=== PATIENT | male | born 1940 | race Caucasian/White ===

== ENCOUNTER → 2017-01-27 | Day surgery (SDC) | payer MEDICARE, BC ==
[2017-01-25 10:02] VITALS: BMI 27.9
[~2017-01-27] MED LIST: LACTATED RINGERS 1,000 ML IV SCH; LIDOCAINE 1% 20 ML VIAL (10MG/ML) FOR IV START INTRADERMA PRN; LIDOCAINE 1% INJ 10MG/ML (20 ML MDV) ONE; PROPOFOL 10 MG/ML 20 ML VIAL IV ONE
[2017-01-27 22:12] VITALS: PULSE 60; RESP 16; TEMP 97
--- NOTE | 2017-01-27 23:14 | PCN ---
PROCEDURE NOTE REQUESTING PHYSICIAN: Dr. Kush Mi BRIEF HISTORY: The patient is a 77-year-old pleasant white male, scheduled for elective colonoscopy as part of evaluation of rectal bleeding for the last 6 months duration. He has atrial fibrillation on Coumadin. He has been on hold for 5 days. He is scheduled for a colonoscopy to evaluate further. The patient had prior colon resection several years ago. PROCEDURE PERFORMED: Colonoscopy. PREOPERATIVE DIAGNOSIS: Intermittent rectal bleeding of 6 months duration. IV sedation by anesthesia. PROCEDURE: After informed consent was obtained, the patient was brought into the endoscopy unit. IV sedation was administered by anesthesia under continuous monitoring. Initial digital rectal examination was normal. The Olympus CF 180 video colonoscope was inserted per rectum, gradually advanced to the cecum without any difficulty. Careful examination was performed as the scope was gradually being withdrawn. The ileocecal valve and appendiceal orifice were visualized and appeared normal. The prep was excellent. The mucous of the cecum, ascending colon, transverse colon, descending colon appeared normal. There was an anastomosis noted in the proximal rectum at 12 cm from the anal verge and the anastomosis had mild friability of the mucosa noted. The rectum appeared distended and along the dentate line two superficial ulcerations identified as well as small internal hemorrhoids but no active bleeding seen. The patient tolerated the procedure well. IMPRESSION: 1. Small internal hemorrhoids. 2. Two superficial ulcerations at the dentate line related to anal fissure, probably the source of bleeding. 3. No evidence of colorectal neoplasia. RECOMMENDATION: The findings of this examination were discussed with the patient as well as his family. He was advised to be on a high-fiber diet and fiber supplements on a regular basis and use of osmotic laxative as needed and avoid constipation. He was advised to resume Coumadin today. MMODL / IJN: [id number] /
--- NOTE | 2017-02-10 08:24 | CDI ---
Dr. Carlos Raman, In this encounter, indication for colonoscopy is rectal bleeding. In procedure note, impression stated as superficial ulcerations at the dentate line related to anal fissure probably the source of bleeding. Based on your clinical opinion please document the underlying cause of rectal bleeding. Sincerely, Marivel Garcia--retention manager Jodie Breaux MBA, TERRI, [facility] [employer], [facility] [phone] [facility]
== END | disposition home or self-care (01) ==
LOC: ORWHC2ENDO 09:46
PROVIDERS: ATTEND Internal Medicine Gastroenterology
DX: K62.5 Hemorrhage of anus and rectum (principal); K60.2 Anal fissure, unspecified; K64.8 Other hemorrhoids; I48.91 Unspecified atrial fibrillation; Z79.01 Long term (current) use of anticoagulants; Z98.0 Intestinal bypass and anastomosis status; Z90.49 Acquired absence of other specified parts of digestive tract; Z86.718 Personal history of other venous thrombosis and embolism; Z95.0 Presence of cardiac pacemaker
CPT/HCPCS: 45378; J2001; J2704

== ENCOUNTER → 2019-02-28 | Outpatient (CLI) | payer MEDICARE, BC ==
[2019-02-28 16:15] LABS: HGB 15.5 gm/dL (13.0-17.5); MCH 31.9 pg (25.0-35.0); MCV 96.7 fL (80.0-100.0); Mean Platelet Volume 8.1; Platelet Count 216 k/uL (150-450); RBC 4.86 m/uL (4.30-5.90); WBC 7.3 k/uL (3.8-10.6)
== END | disposition home or self-care (01) ==
LOC: LABWHC1 15:40
PROVIDERS: ATTEND Otolaryngology
DX: Z01.812 Encounter for preprocedural laboratory examination (principal)
CPT/HCPCS: 36415; 85027

== ENCOUNTER 2019-03-11 08:07 | Day surgery (SDC) | payer MEDICARE, BC ==
[2019-03-07 11:24] VITALS: BMI 26.5
--- NOTE | 2019-03-11 00:56 | HP ---
HISTORY AND PHYSICAL CHIEF COMPLAINT: Carcinoma of the mouth. HISTORY OF PRESENT ILLNESS: This patient is a pleasant 79-year-old male who was recently seen in my office on referral by Dr. Mi. The patient had previously had an abscess on the posterior aspect of his neck, which was drained by Dr. Mi and he was placed on an oral antibiotic. This area apparently had gotten better. However, the patient was concerned about a lesion on the left corner of his mouth which has been there for quite some time that is same for at least several months to as long as a year. He states that it occasionally bleeds, but it is not painful. At the time the patient was seen in my office, clinical examination revealed the patient had an approximately 5-7 mm raised macular papular lesion, which was ulcerated in the middle and had the appearance of a basal cell carcinoma. It is located on the left lower lip near the corner of the mouth or left commissure. I have advised the patient not to continue to try and shave close to this area because he may be irritating it. It was also recommended this area to be excised completely because of a possible carcinoma. PAST MEDICAL HISTORY: Past medical history reveals patient has: ALLERGIES: TO SULFA AND TO CERTAIN SEAFOOD AND IODINE. PREVIOUS SURGERIES: Include colectomy x2, appendectomy, insertion of a pacemaker, kidney surgery, and hemorrhoid surgery. CURRENT MEDICATIONS: Include warfarin, and Keflex. REVIEW OF SYSTEMS: Reveals that the cardiovascular system is positive for ASHD and cardiac arrhythmia. The remainder of the review of systems is essentially unremarkable. PHYSICAL EXAMINATION: This patient is a pleasant 79-year-old male who is alert, cooperative and well-oriented to time and place. HEENT examination patient is normocephalic. Tympanic membranes are normal middle ear spaces are free of any fluid or infection. Pupils are equal, round, and reactive to light and accommodation. Extraocular movements within normal limits. Intranasal examination reveals moderate to severe septal deviation with compensatory hypertrophy of the inferior turbinates and a moderate amount of mucus on the mucous membranes and draining down the posterior pharynx. Examination of oropharynx is unremarkable. Attention to the patient's lower lip reveals that the patient has an approximately a 5-7 mm lesion located in the left corner of the mouth near the left commissure. No other suspicious lesions are noted. Cranial nerves 2-12. The remainder of the head and neck exam is essentially within normal limits. Chest/cardiovascular: Both lung sánchez are clear to percussion and auscultation. Patient is in regular sinus rhythm. S1, S2 are present without evidence of murmurs S3s or S4. Abdomen is no evidence no evidence of any masses, megaly, or tenderness. ABDOMEN: Soft. Skin is unremarkable. Musculoskeletal/neurological is unremarkable. Rectal exam initially present. The rectal exam is deferred at this time because the patient is on a regular basis at his family physician's office. The remainder of physical exam is essentially unremarkable. IMPRESSION: Carcinoma left corner of the mouth. PLAN: The patient is scheduled to undergo excision of a carcinoma of the left corner of the mouth under general anesthesia. Attention RNs in the pre-surgical area. If the OR, I have ordered for this patient to receive 2 g of Ancef, IV to be given once an intravenous line has been established. If the pharmacy department sends a different pre-surgical prophylactic antibiotics to the pre-surgical area for this patient, that order should be cancelled and the medication should be returned to the pharmacy department. Please make sure that the patient's account is credited appropriately. I have also ordered for this patient to receive 1000 mg of Ofirmev IV to be given once an intravenous line has been established. Finally, I have also requested that the patient be fitted with Venodyne compression stockings. I have discussed the risks, benefits and alternative therapies for the above-mentioned procedure and for both sedation/analgesia as well as necessary blood product administration, if indicated, as they pertain to this patient. The patient has indicated his or her understanding and acceptance of the risks and procedures discussed. MMODL / IJN: [id number] /
[~2019-03-11 08:07] MED LIST changes: +DEXAMETHASONE SOD PHOSPHATE 10 MG/ML 1 ML VIAL IV ONE; +HYDROmorphone 0.5 MG/0.5 ML SYRINGE IVP PRN; -LIDOCAINE 1% INJ 10MG/ML (20 ML MDV) ONE; +ONDANSETRON 4 MG/2 ML VIAL IVP ONE; -PROPOFOL 10 MG/ML 20 ML VIAL IV ONE; +Pre Op ABX Message 1 EACH MISC MISCELLANE ONE
[2019-03-11] MEDS ORDERED: LACTATED RINGERS 1,000 ML IV ONE (09:14)
[2019-03-11] MEDS ORDERED: ONDANSETRON 4 MG/2 ML VIAL IVP ONE (09:24)
[2019-03-11 09:30] LABS: INR 1.4 (<1.2); Prothrombin Time 14.2 sec (9.0-12.0)
[2019-03-11] MEDS ORDERED: ACETAMINOPHEN IV (For NPO) 1,000 MG in EMPTY BAG 1 BAG IVPB ONE (09:45)
[2019-03-11] MEDS ORDERED: NEOSTIGMINE 1 MG/ML 10 ML VIAL ONE (10:40)
[2019-03-11] MEDS ORDERED: PROPOFOL 10 MG/ML 20 ML VIAL IV ONE (10:40)
[2019-03-11] MEDS ORDERED: SUCCINYLCHOLINE CHLORIDE 100 MG/5 ML SYR IV ONE (10:40)
[2019-03-11] MEDS ORDERED: GLYCOPYRROLATE 0.2 MG/ML 2 ML VIAL ONE (10:40)
[2019-03-11] MEDS ORDERED: MIDAZOLAM 2 MG/2 ML VIAL ONE (10:40)
[2019-03-11] MEDS ORDERED: fentaNYL (PF) 50 MCG/ML 2 ML AMP ONE (10:40)
[2019-03-11] MEDS ORDERED: LIDOCAINE 1% INJ 10MG/ML (20 ML MDV) ONE (10:40)
[2019-03-11] MEDS ORDERED: ROCURONIUM BROMIDE 10 MG/ML 10 ML VIAL IV ONE (10:40)
[2019-03-11] MEDS ORDERED: BACITRACIN 500 UNIT/GM OINT 28.4 GM TUBE TOPICAL ONE (11:27)
[2019-03-11 12:21] VITALS: TEMP 98
[2019-03-11 13:12] VITALS: PULSE 51
[2019-03-11 13:25] VITALS: BP 142/81; RESP 16
--- NOTE | 2019-03-11 17:47 | OP ---
OPERATIVE REPORT DATE OF SURGERY: 03/11/2019 PREOPERATIVE DIAGNOSIS: Lesion (suspect carcinoma) 5-7 mm of the left lower lip/commissure. POSTOPERATIVE DIAGNOSIS: Lesion (suspect carcinoma) 5-7 mm of the left lower lip/commissure. Final pathology is pending. ANESTHESIA: General anesthesia. OPERATIVE PROCEDURE: Complete excision of 5-7 mm lesion of the left lower lip/commissure with reconstruction via a small advancement flap. SURGEON: Dr. Aguila. COMPLICATIONS: None. ESTIMATED BLOOD LOSS: Less than 30 mL. OPERATIVE PROCEDURE: The patient is placed on operating table in supine position. After uneventful induction and endotracheal intubation, satisfactory general anesthesia was obtained. Next the patient's left mehrdad face was prepped and draped in the usual and customary fashion. Following this, the lesion in question was inspected. It was found that the lesion was extremely close to the left commissure of the mouth. The lesion measured approximately 0.5-0.7 mm. It was elected to excise the lesion in an elliptical fashion and to reconstruct it with a small advancement flap. The proposed incision line was outlined with a Codman marker. Next using a #15 scalpel blade, the lesion was excised completely in the usual fashion. The lesion was then marked using various colored sutures to tack the medial portion of the specimen with a green suture. The lateral portion of the specimen with a white suture, the superior portion of the suture was tagged with a black suture and the inferior portion of the suture was was tagged with a blue suture. The specimen was sent to pathology and permanent sectioning. It should be noted that the incision was carried down to the level of the orbicularis piotr muscle. Excision of the lesion left a large defect. Hemostasis was obtained using low wattage electrocautery. Next, a small advancement flap was created in the usual fashion so as to make closure of this defect easier and also in an effort to lessen any distortion of the commissure/corner of the mouth. The closure was started with deep sutures using 4-0 Vicryl in an interrupted fashion. Next, the subcutaneous fatty tissues were reapproximated using 4-0 chromic in an interrupted buried fashion. Next, the subcu subcutaneous tissues were approximated using 4-0 rapid absorbing Vicryl in interrupted fashion. A second subcutaneous layer was used to further approximate the skin edges using full rapid absorbing Vicryl in an interrupted fashion. To further bolster the strength of the closure, which was located near the left corner of the mouth, surgical idris were used in the skin. At this point, the procedure was terminated. No dressing was applied. The area was coated with bacitracin ointment. The patient tolerated the procedure well and was returned to the recovery room in satisfactory condition. Approximate operating time was 2 hours and 5 minutes. Final pathology is pending. MMBHARATH / IJN: [id number] / MTDD
== END 2019-03-11 14:09 | disposition home or self-care (01) ==
LOC: OR 08:07
PROVIDERS: ATTEND Otolaryngology
DX: C44.01 Basal cell carcinoma of skin of lip (principal); Z90.49 Acquired absence of other specified parts of digestive tract; Z95.0 Presence of cardiac pacemaker; I25.10 Atherosclerotic heart disease of native coronary artery without angina pectoris; I49.9 Cardiac arrhythmia, unspecified; Z87.891 Personal history of nicotine dependence; Z86.718 Personal history of other venous thrombosis and embolism; Z79.01 Long term (current) use of anticoagulants; Z91.013 Allergy to seafood; Z91.010 Allergy to peanuts; Z88.2 Allergy status to sulfonamides; Z91.048 Other nonmedicinal substance allergy status
CPT/HCPCS: 14060; 88305; 85610; J2250; J2710; J0690; J2405; J2001; J3010; J0131; J0330; J2704

== ENCOUNTER 2021-05-27 09:46 | Day surgery (SDC) | payer MEDICARE, BC ==
[~2021-05-27 09:46] MED LIST changes: -DEXAMETHASONE SOD PHOSPHATE 10 MG/ML 1 ML VIAL IV ONE; -HYDROmorphone 0.5 MG/0.5 ML SYRINGE IVP PRN; -LACTATED RINGERS 1,000 ML IV SCH; -LIDOCAINE 1% 20 ML VIAL (10MG/ML) FOR IV START INTRADERMA PRN; -ONDANSETRON 4 MG/2 ML VIAL IVP ONE; -Pre Op ABX Message 1 EACH MISC MISCELLANE ONE; +ceFAZolin 1 GM in SODIUM CHLORIDE 0.9% IRRIG BTL 250 ML IRRIGATION PRN
[2021-05-27 10:25] LABS: Basophils # (A) 0.1 k/uL (0-0.2); Basophils % (A) 1 %; Eosinophils # (A) 0.1 k/uL (0-0.7); Eosinophils % (A) 2 %; HGB 16.3 gm/dL (13.0-17.5); Lymphocytes # (A) 1.6 k/uL (1.0-4.8); Lymphocytes % (A) 24 %; MCH 32.5 pg (25.0-35.0); MCHC 33.3 g/dL (31.0-37.0); MCV 97.8 fL (80.0-100.0); Mean Platelet Volume 8.1; Monocytes # (A) 0.6 k/uL (0-1.0); Monocytes % (A) 9 %; Neutrophils # (A) 4.3 k/uL (1.3-7.7); Neutrophils % (A) 64 %; Platelet Count 199 k/uL (150-450); RBC 5.01 m/uL (4.30-5.90); RDW 13.2 % (11.5-15.5); WBC 6.7 k/uL (3.8-10.6)
[2021-05-27 10:34] LABS: Calcium 9.2 mg/dL (8.4-10.2); INR 1.6 (<1.2); Potassium 4.1 mmol/L (3.5-5.1); Prothrombin Time 16.3 sec (9.0-12.0)
[2021-05-27] MEDS: SODIUM CHLORIDE 0.9% 1,000 ML IV SCH ×2 (10:36→23:45)
[2021-05-27] MEDS ORDERED: fentaNYL (PF) 50 MCG/ML 2 ML AMP ONE (10:40)
[2021-05-27] MEDS ORDERED: HYDROmorphone (PF) 1 MG/ML ONE (10:40)
[2021-05-27] MEDS ORDERED: PROPOFOL 10 MG/ML 20 ML VIAL IV ONE (10:40)
[2021-05-27] MEDS ORDERED: MIDAZOLAM 2 MG/2 ML VIAL ONE (10:40)
[2021-05-27] MEDS ORDERED: IOPAMIDOL-370 50ML BTL INJ ONE (11:09)
[2021-05-27] MEDS ORDERED: LIDOCAINE 1% INJ 10MG/ML (20 ML MDV) SQ ONE (11:30)
[2021-05-27] MEDS ORDERED: ACETAMINOPHEN TAB 325 MG TAB PO PRN (14:52)
--- NOTE | 2021-05-27 15:06 | P.EPPROC ---
- EP Procedure Note Electrophysiology Procedure Note: Diagnosis Bradycardia, greater than 90% RV pacing Permanent atrial fibrillation Device at CY Procedure Implantation of an LV lead Implantation of a His bundle/left bundle lead Chronic RV pacing lead cut and capped Chronic single chamber generator removed New biventricular pacemaker generator implanted with Pouch Details Patient was brought to the EP lab in a fasting state. Left upper extremity venogram performed. Mild stenosis in the axillary subcu injunction 10 mL every dye injected Written informed consent was obtained prior to the procedure. Conscious sedation provided by anesthesia team IV antibiotics administered. Local anesthesia administered. A 4 cm incision made in the pectoral area. Subfascial pocket made. Venous access obtained Venodilation of the subclavian axillary junction and the innominate vein performed with serial dilators Venous sheaths placed. Leads placed in the right heart His bundle sheath and a [employer]tronic model #3830-lead was addition the His bundle area Nonselective His bundle pacing obtained with loss of capture 2 V at 1 ms This lead was then removed and advanced to the left bundle area The lead was screwed in deep into the septum in this area. Serial EKG changes in the QRS noted until right bundle branch block morphology QRS was noted However in the sheath was removed, this lead was dislodged. The subclavian/pectoral area was very tight This sheath was then upgraded to a larger size sheath A new His bundle sheath was placed His bundle pacing was successfully performed once again. Nonselective capture was lost at around 2-2.[address] [facility] LV lead positioned in the LV vein. Anterior lateral vein targeted. Diminutive veins noted Anterolateral vein targeted. Initially excellent thresholds obtained along the LV lead after removal of the sheath the LV thresholds were higher Best capture threshold noted at LV 2-Can Old RV lead was cut And secured the pectoralis muscle Old generator was explanted New generator implanted, [employer] biventricular pacemaker lead [employer] Biventricular pacemaker device connected to the leads and placed in the subfascial pocket LV first pacing performed with His bundle pacing 80 ms thereafter Antibiotic envelope used Patient tolerance the procedure well without acute complications Extended procedure on account of His bundle mapping and left bundle mapping Venoplasty of the subclavian/axillary vein junction as well as rhinoplasty of the distal innominate vein
[2021-05-27] MEDS ORDERED: ACETAMINOPHEN IV (For NPO) 1,000 MG in EMPTY BAG 1 BAG IVPB ONE (15:15)
[2021-05-27] MEDS ORDERED: WARFARIN 5 MG TAB PO SCH (18:00)
--- NOTE | 2021-05-27 18:29 | XR ---
EXAMINATION: XR chest 1V portable DATE AND TIME: 05/27/2021 6:06 PM CLINICAL INDICATION: Lead placement check TECHNIQUE: AP upright portable COMPARISON: Chest radiograph 09/07/2014 FINDINGS: Cardiac pacemaker noted with leads well-visualized. The lungs are clear. The pleural spaces are negative. The cardiac silhouette is not enlarged. The remainder of the mediastinal silhouette is unremarkable. The skeletal structures and soft tissues are negative for acute findings. IMPRESSION: No acute pulmonary pleural process.
[2021-05-28 07:33] VITALS: BP 148/76; PULSE 48; RESP 17; TEMP 98
[2021-05-28 07:33] LABS: INR 1.4 (<1.2); Prothrombin Time 14.5 sec (9.0-12.0)
--- NOTE | 2021-05-29 15:13 | P.DS ---
Providers Attending physician: Samir Rodriguez Primary care physician: [facility] Course: Patient is doing well post upgrade to a biventricular device, pacemaker, [employer] Minimal soakage no hematoma No chest discomfort no dizziness lightheadedness On examination vitals are stable blood pressure is normal Heart sounds S1 and S2 are normal Lungs clear equal air entry bilaterally Abdomen soft Impression Permanent atrial fibrillation with bradycardia Pacemaker at CY Old RV lead is a split pacemaker lead This is start His bundle lead was implanted LV lead was implanted His bundle pacing incorporated LV pacing performed Plan Discharge home today Pacemaker is functioning normally Chest x-ray is within normal limits Antibiotics complete Plan - Discharge Summary Discharge Rx Participant: No New Discharge Prescriptions: No Action Warfarin [Coumadin] 5 mg PO MOWEFR Warfarin [Coumadin] 2.5 mg PO SUTUTHSA Acetaminophen with Codeine [Tylenol w/codeine #3] 1 tab PO Q4H PRN 3 Days #18 tab PRN Reason: Pain Discharge Medication List Warfarin [Coumadin] 5 mg PO MOWEFR 09/07/14 [History] Warfarin [Coumadin] 2.5 mg PO SUTUTHSA 01/25/17 [History] Acetaminophen with Codeine [Tylenol w/codeine #3] 1 tab PO Q4H PRN 3 Days #18 tab 03/10/19 [Rx] Follow up Appointment(s)/Referral(s): Samir Rodriguez MD [STAFF PHYSICIAN] - 06/03/21 1:30 pm (Appointment is at [facility] ) Patient Instructions/Handouts: Pacemaker (DC) Activity/Diet/Wound Care/Special Instructions: PATIENT EDUCATION MATERIAL Instructions following a heart rhythm device implant. 1. Keep dressing DRY for 5 DAYS. You may cover the area with Saran or Cling Wrap, prior to a shower. 2. The dressing will be removed in the [facility]. Absorbable sutures were used to close the wound. 3. Avoid raising the left arm above the shoulder level. 4 week restriction 4. Avoid arm movements, like backscratching, rubbing the head, or pulling on a cord. 4 weeks restriction 5. Gentle range of motion movements of the shoulder, closest to the incision should be performed to avoid a frozen shoulder. (Pendulum exercises of the shoulder) 6. The opposite arm may be used freely. 7. Avoid driving for 7 days. 8. Avoid activities such as golfing, swimming, weed whacking, lifting more than 10 pounds weight, bowling, gymnastics and weight training/lifting. (6 weeks restriction) 9. Activities such as wood chopping with an axe, pull-ups in the gymnasium, power lifting, arc-welding, being close to home induction cooktops will always be a problem. 10. Arm sling is only a reminder not to raise the arm above the head. You do not need to keep the arm completely immobilized. Your free to move the arm and use it and for normal activities. In case of any problems, please call [facility], [place], @ [phone], Attention: Device Clinic Device clinic follow-up in 5 days Follow-up with primary lead atg developer in 2-3 months Discharge Disposition: HOME SELF-CARE
[2021-05-29] MEDS ORDERED: WARFARIN 2.5 MG TAB PO SCH (18:00)
== END 2021-05-28 13:42 | disposition home or self-care (01) ==
LOC: CATHEP 09:46 → 6NMEDSUR 14:45 → CATHEP 05-28 13:42
PROVIDERS: ATTEND Internal Medicine Clinical Cardiac Electrophysiology
DX: I48.21 Permanent atrial fibrillation (principal); Z79.01 Long term (current) use of anticoagulants; Z20.822 Contact with and (suspected) exposure to COVID-19
CPT/HCPCS: 33225; 33229; 80048; 85025; 85610 ×2; 87635; 71045; C1769 ×6; C1892 ×2; C1730; C1887; C1898; C1900; C2621; J2250; J0690 ×2; J2001; J3010; J1170; J0131; J2704; Q9967

== ENCOUNTER 2021-05-31 15:20 | Observation (INO) | payer MEDICARE, BC ==
[2021-05-31] MEDS ORDERED: DIPH,PERTUS(ACELL)TETVAC-LF 0.5 ML VIAL IM ONE (17:06)
--- NOTE | 2021-05-31 17:13 | ED ---
General Adult HPI - General Chief complaint: Dizziness Stated complaint: syncope Time Seen by Provider: 05/31/21 16:12 Source: patient, EMS Mode of arrival: EMS Limitations: no limitations - History of Present Illness Initial comments: Dictation was produced using [employer] dictation software. please excuse any grammatical, word or spelling errors. Chief Complaint: 81-year-old male presents to the emergency department after syncopal episode and vertigo History of Present Illness: 81-year-old male he states that he was walking trying and some exercise. States during his walk he started to feel vertiginous. He states that he fell to the ground. Next he notices he is waking up on the floor. Patient states he did strike his chin on something hard. Patient recently had a pacemaker placed. States it is not AICD. He doesn't have any pain complaints. The bedside currently he feels a symptomatic. He feels significant vertigo however when he moves his head, especially when he was from sitting to standing. The ROS documented in this emergency department record has been reviewed and confirmed by me. Those systems with pertinent positive or negative responses have been documented in the HPI. All other systems are other negative and/or noncontributory. PHYSICAL EXAM: General Impression: Alert and oriented x3, not in acute distress HEENT: Superficial abrasion to the chin, extra-ocular movements intact, pupils equal and reactive to light bilaterally, mucous membranes moist. Cardiovascular: Heart regular rate and rhythm Chest: Able to complete full sentences, no retractions, no tachypnea Abdomen: abdomen soft, non-tender, non-distended, no organomegaly Musculoskeletal: Pulses present and equal in all extremities, no peripheral edema Motor: no focal deficits noted Neurological: CN II-XII grossly intact, no focal motor or sensory deficits noted Skin: Intact with no visualized rashes Psych: Normal affect and mood ED course: 81-year-old male presents emergency department for positional vertigo and syncopal episode. Vital signs upon arrival shows heart rate of 50, rest of vital signs within acceptable limits. EKG shows strange pacer spikes sometimes before the QRS complex and sometimes he for the initiation of the T wave. Unclear if this is normal. Patient was having features of benign positional v ertigo. At rest he is asymptomatic I wrote the second he moves his head he starts to feel vertiginous symptoms. Laboratory evaluation obtained per it CBC unremarkable. Coag panel is negative. Troponin is 0.167. No old troponins for comparison. Troponin elevation is likely secondary to recent pacemaker placement. Pacemaker was placed 4 days ago. Patient at the bedside reevaluated at 6:30 PM denying any significant symptoms at the moment. Given patient's recent pacemaker placement, age and comorbidities will have patient admitted. Pending pacemaker interrogation. Will be admitted to [facility] with consultation to cardiology. EKG interpretation: Ventricular rate paced rhythm, A. fib, QRS 89, QTc 460. No SC prolongation, no QTC prolongation, no ST or T-wave changes noted. - Related Data Home Medications Medication Instructions Recorded Confirmed Warfarin [Coumadin] 5 mg PO MOWEFR@209909/07/14 05/31/21 Warfarin [Coumadin] 2.5 mg PO SUTUTHSA@209901/25/17 05/31/21 Allergies Allergy/AdvReac Type Severity Reaction Status Date / Time Fish Containing Products Allergy Rash/Hives, Verified 05/31/21 18:27 [Fish] swelling, "asthma attack" peanut Allergy Unknown Verified 05/31/21 18:27 shellfish derived Allergy Rash/Hives, Verified 05/31/21 18:27 swelling,"asthma attack" Sulfa (Sulfonamide Allergy Unknown Verified 05/31/21 18:27 Antibiotics) Review of Systems ROS Statement: Those systems with pertinent positive or pertinent negative responses have been documented in the HPI. ROS Other: All systems not noted in ROS Statement are negative. Past Medical History Past Medical History: Asthma, Cancer, Deep Vein Thrombosis (DVT), Prostate Disorder, Pulmonary Embolus (PE) Additional Past Medical History / Comment(s): hx diverticulitis, bradycardia, SOB on excertion, gout, hx kidney stones, hx prostate cancer- tx with radioactive implants, skin cancer left corner of mouth. on rx for abcess cyst on back of neck History of Any Multi-Drug Resistant Organisms: None Reported Past Surgical History: Appendectomy, Bowel Resection, Heart Catheterization, Pacemaker Additional Past Surgical History / Comment(s): yady filter, colostomy/later reversal, surgery for kidney stones, Past Anesthesia/Blood Transfusion Reactions: No Reported Reaction Type of Cardiac Device: Permanent Pacemaker Device Placement Date:: 2011 Past Psychological History: No Psychological Hx Reported Smoking Status: Former smoker Past Alcohol Use History: Occasional Past Drug Use History: None Reported - Past Family History Mother Family Medical History: No Reported History General Exam Limitations: no limitations Course Vital Signs 05/31/21 15:58 Temperature 97.8 F Pulse Rate 50 L Respiratory 16 Rate Blood Pressure 150/75 O2 Sat by Pulse 97 Oximetry Medical Decision Making - Lab Data Result diagrams: 05/31/21 17:07 05/31/21 17:07 Lab Results 05/31/21 05/31/21 05/31/21 Range/Units 17:07 17:07 17:07 WBC 6.6 (3.8-10.6) k/uL RBC 4.22 L (4.30-5.90) m/uL Hgb 13.4 (13.0-17.5) gm/dL Hct 41.4 (39.0-53.0) % MCV 98.1 (80.0-100.0) fL MCH 31.8 (25.0-35.0) pg MCHC 32.4 (31.0-37.0) g/dL RDW 13.3 (11.5-15.5) % Plt Count 155 (150-450) k/uL MPV 8.4 Neutrophils % 77 % Lymphocytes % 12 % Monocytes % 8 % Eosinophils % 1 % Basophils % 0 % Neutrophils # 5.1 (1.3-7.7) k/uL Lymphocytes # 0.8 L (1.0-4.8) k/uL Monocytes # 0.5 (0-1.0) k/uL Eosinophils # 0.1 (0-0.7) k/uL Basophils # 0.0 (0-0.2) k/uL PT 14.3 H (9.0-12.0) sec INR 1.4 H (<1.2) APTT 24.1 (22.0-30.0) sec Sodium 136 L (137-145) mmol/L Potassium 4.1 (3.5-5.1) mmol/L Chloride 106 (98-107) mmol/L Carbon Dioxide 22 (22-30) mmol/L Anion Gap 8 mmol/L BUN 17 (9-20) mg/dL Creatinine 0.82 (0.66-1.25) mg/dL Est GFR (CKD-EPI)AfAm >90 (>60 ml/min/1.73 sqM) Est GFR (CKD-EPI)NonAf 84 (>60 ml/min/1.73 sqM) Glucose 87 (74-99) mg/dL Calcium 8.2 L (8.4-10.2) mg/dL Troponin I (0.000-0.034) ng/mL 05/31/21 Range/Units 17:07 WBC (3.8-10.6) k/uL RBC (4.30-5.90) m/uL Hgb (13.0-17.5) gm/dL Hct (39.0-53.0) % MCV (80.0-100.0) fL MCH (25.0-35.0) pg MCHC (31.0-37.0) g/dL RDW (11.5-15.5) % Plt Count (150-450) k/uL MPV Neutrophils % % Lymphocytes % % Monocytes % % Eosinophils % % Basophils % % Neutrophils # (1.3-7.7) k/uL Lymphocytes # (1.0-4.8) k/uL Monocytes # (0-1.0) k/uL Eosinophils # (0-0.7) k/uL Basophils # (0-0.2) k/uL PT (9.0-12.0) sec INR (<1.2) APTT (22.0-30.0) sec Sodium (137-145) mmol/L Potassium (3.5-5.1) mmol/L Chloride (98-107) mmol/L Carbon Dioxide (22-30) mmol/L Anion Gap mmol/L BUN (9-20) mg/dL Creatinine (0.66-1.25) mg/dL Est GFR (CKD-EPI)AfAm (>60 ml/min/1.73 sqM) Est GFR (CKD-EPI)NonAf (>60 ml/min/1.73 sqM) Glucose (74-99) mg/dL Calcium (8.4-10.2) mg/dL Troponin I 0.167 H* (0.000-0.034) ng/mL Disposition Clinical Impression: Syncope, BPPV (benign paroxysmal positional vertigo) Disposition: ADMITTED IP TO THIS [facility] Condition: Fair Referrals: Phoenix Mi MD [Primary Care Provider] - 1-2 days
--- NOTE | 2021-05-31 17:44 | CT ---
EXAMINATION TYPE: CT brain nunu wo con DATE OF EXAM: 05/31/2021 COMPARISON: 09/07/2014 HISTORY: Fall. Syncope CT DLP: mGycm Automated exposure control for dose reduction was used. Images of the brain and cervical spine obtained without contrast. There is cerebral cortical atrophy. There is no mass effect or midline shift. There is no sign of int racranial hemorrhage. Calvarium is intact. There is normal aeration of the mastoid sinuses. Skull bas e is intact. There is mild cervical kyphotic curvature. There is degenerative disc space narrowing at C4-5 with sp urring. No compression fracture. Facet joints are intact. Prevertebral soft tissues are intact. IMPRESSION: Cerebral atrophy. No acute intracranial abnormality. No acute bony abnormality of the cervical spine. Minor degenerative changes. Mild straightening of th e spine could relate to some spasm. Brain appears unchanged. Cervical spine straightening is a change compared to old exam.
[2021-05-31 17:50] LABS: Basophils % (A) 0 %; Eosinophils # (A) 0.1 k/uL (0-0.7); Eosinophils % (A) 1 %; HCT 41.4 % (39.0-53.0); HGB 13.4 gm/dL (13.0-17.5); Lymphocytes # (A) 0.8 k/uL (1.0-4.8); Lymphocytes % (A) 12 %; MCH 31.8 pg (25.0-35.0); MCHC 32.4 g/dL (31.0-37.0); MCV 98.1 fL (80.0-100.0); Mean Platelet Volume 8.4; Monocytes # (A) 0.5 k/uL (0-1.0); Monocytes % (A) 8 %; Neutrophils # (A) 5.1 k/uL (1.3-7.7); Neutrophils % (A) 77 %; Platelet Count 155 k/uL (150-450); RBC 4.22 m/uL (4.30-5.90); RDW 13.3 % (11.5-15.5); WBC 6.6 k/uL (3.8-10.6)
--- NOTE | 2021-05-31 17:58 | XR ---
EXAMINATION TYPE: XR chest 1V portable DATE OF EXAM: 05/31/2021 COMPARISON: 05/27/2021 HISTORY: Fall. Chest pain TECHNIQUE: FINDINGS: Heart is enlarged. No heart failure. There is left axillary pacemaker. There is no pleural effusion or pneumothorax. IMPRESSION: Cardiomegaly. No active cardiopulmonary disease. No change.
--- NOTE | 2021-05-31 17:59 | XR ---
EXAMINATION TYPE: XR pelvis AP view DATE OF EXAM: 05/31/2021 COMPARISON: NONE HISTORY: Fall. Pain TECHNIQUE: 2 views FINDINGS: Pelvic ring is intact. Proximal femurs and hip joints are intact. Sacroiliac joints are int act. There are implants in the prostate. IMPRESSION: No acute abnormality of the pelvis. No fracture.
[2021-05-31 18:04] LABS: African American GFR (CKD) >90 (>60 ml/min/1.73 sqM); Anion Gap 8 mmol/L; Blood Urea Nitrogen 17 mg/dL (9-20); Calcium 8.2 mg/dL (8.4-10.2); Carbon Dioxide 22 mmol/L (22-30); Chloride 106 mmol/L (98-107); Glucose 87 mg/dL (74-99); Non-African American GFR(CKD) 84 (>60 ml/min/1.73 sqM); Potassium 4.1 mmol/L (3.5-5.1); Sodium 136 mmol/L (137-145)
[2021-05-31 18:16] LABS: INR 1.4 (<1.2); Partial Thromboplastin Time 24.1 sec (22.0-30.0); Prothrombin Time 14.3 sec (9.0-12.0)
[2021-05-31] MEDS ORDERED: NALOXONE 0.4 MG/ML 1 ML VIAL IV PRN (18:32)
[2021-05-31] MEDS ORDERED: SODIUM CHLORIDE 0.9% 1,000 ML IV SCH (18:45)
--- NOTE | 2021-05-31 23:29 | P.HPIM ---
History of Present Illness H&P Date: 05/31/21 The patient is an 81-year-old male with a PMH of permanent A. fib with bradycardia on Coumadin, status post pacemaker placement who presents to the emergency room for syncope and fall. The patient [place] walk around to get some exercise when he suddenly developed severe lightheadedness, and then lost consciousness. He woke up after an unknown amount of time on the ground, realizing that he had hit chin and nose on the ground, hitting the gravel dirt road. Of note, the patient recently underwent the placement of a new biventricular pacemaker ([employer]) placement by Dr. Rodriguez on 05/27/21. The patient does report that ever since the placement of this new pacemaker, that he has felt lightheaded, especially when standing up quickly or bending down. He denied symptoms of vertigo, and denied any symptoms with turning his head while laying in bed. He further denied chest discomfort, shortness of breath, nausea, vomiting, diaphoresis, abdominal pain. Denied fever, chills, cough. Does not recall experiencing palpitations, chest discomfort, or shortness of breath prior to losing consciousness. He underwent an extensive evaluation in the emergency room with a CT brain and cervical spine without contrast showing mild straightening of the spine, possible spasm with no acute abnormalities. An EKG revealed A. fib at 62 bpm with poor R-wave progression, and T-wave inversion in leads 2, 3, aVF. Chest x-ray revealed cardiomegaly but otherwise unremarkable. Pelvis x-ray was also unremarkable. Laboratory evaluation revealed a troponin of 0.167. Review of systems: Pertinent positives and negatives as discussed in HPI, a complete review of systems was performed and all other systems are negative. Physical examination: General: non toxic, no distress, appears at stated age, normal weight Derm: Chin abrasion superficial, nasal tip and bridge mild ecchymosis, warm, dry Head: atraumatic, normocephalic, symmetric Eyes: EOMI, no lid lag, anicteric sclera, pupils equal round reactive to light ENT: Nose and ears atraumatic, no thrush, no pharyngeal erythema Neck: No thyromegaly, no cervical lymphadenopathy, trachea midline, supple Mouth: no lip lesion, mucus membranes moist Cardiovascular: Bradycardia, irregularly irregular, no murmur, positive posterior tibial pulse bilateral, no edema, capillary refill less than 2 seconds Lungs: CTA bilateral, no rhonchi, no rales , no accessory muscle use Abdominal: soft, nontender to palpation, no guarding, no appreciable organomegaly, normal bowel sounds Ext: no gross muscle atrophy, muscle strength 5 out of 5 in all 4 extremities grossly, no contractures, Neuro: CN II-XI grossly intact, light touch intact all 4 extremities, finger to nose within normal limits, Psych: Alert, oriented, appropriate affect Assessment/plan Syncope in setting of A. fib with SVR and recent placement of new pacemaker -Cardiac monitoring -Fall precautions -Cardiology consulted Elevated troponin, patient denying chest discomfort or shortness of breath at this time -May be due to recent pacemaker placement -Trend for now Subtherapeutic INR on Coumadin -Per pharmacy dosing DVT prophylaxis -Coumadin The patient is admitted with an anticipated less than 2 midnight stay for evaluation of syncope CODE STATUS: Full Code Discussed with: Patient Anticipated discharge date: in am Anticipated discharge place: Home Past Medical History Past Medical History: Asthma, Cancer, Deep Vein Thrombosis (DVT), Prostate Disorder, Pulmonary Embolus (PE) Additional Past Medical History / Comment(s): hx diverticulitis, bradycardia, SOB on excertion, gout, hx kidney stones, hx prostate cancer- tx with radioactive implants, skin cancer left corner of mouth. on rx for abcess cyst on back of neck History of Any Multi-Drug Resistant Organisms: None Reported Past Surgical History: Appendectomy, Bowel Resection, Heart Catheterization, Pacemaker Additional Past Surgical History / Comment(s): yady filter, colostomy/later reversal, surgery for kidney stones, Past Anesthesia/Blood Transfusion Reactions: No Reported Reaction Type of Cardiac Device: Permanent Pacemaker Device Placement Date:: 2011 Past Psychological History: No Psychological Hx Reported Smoking Status: Former smoker Past Alcohol Use History: Occasional Past Drug Use History: None Reported - Past Family History Mother Family Medical History: No Reported History Medications and Allergies Home Medications Medication Instructions Recorded Confirmed Type Warfarin [Coumadin] 5 mg PO MOWEFR@209909/07/14 05/31/21 History Warfarin [Coumadin] 2.5 mg PO SUTUTHSA@209901/25/17 05/31/21 History Allergies Allergy/AdvReac Type Severity Reaction Status Date / Time Fish Containing Products Allergy Rash/Hives, Verified 05/31/21 18:27 [Fish] swelling, "asthma attack" peanut Allergy Unknown Verified 05/31/21 18:27 shellfish derived Allergy Rash/Hives, Verified 05/31/21 18:27 swelling,"asthma attack" Sulfa (Sulfonamide Allergy Unknown Verified 05/31/21 18:27 Antibiotics) Physical Exam Vitals: Vital Signs Temp Pulse Pulse Resp BP Pulse Ox 05/31/21 19:22 53 L 18 157/86 96 05/31/21 18:00 54 L 18 136/94 97 05/31/21 17:20 58 L 05/31/21 17:00 59 L 18 140/80 98 05/31/21 15:58 97.8 F 50 L 16 150/75 97 Intake and Output 05/31/21 05/31/21 05/31/21 06:59 14:59 22:59 Other: Weight 88.451 kg Results CBC & Chem 7: 05/31/21 17:07 05/31/21 17:07 Labs: Abnormal Lab Results - Last 24 Hours (Table) 05/31/21 05/31/21 05/31/21 Range/Units 17:07 17:07 17:07 RBC 4.22 L (4.30-5.90) m/uL Lymphocytes # 0.8 L (1.0-4.8) k/uL PT 14.3 H (9.0-12.0) sec INR 1.4 H (<1.2) Sodium 136 L (137-145) mmol/L Calcium 8.2 L (8.4-10.2) mg/dL Troponin I (0.000-0.034) ng/mL 05/31/21 Range/Units 17:07 RBC (4.30-5.90) m/uL Lymphocytes # (1.0-4.8) k/uL PT (9.0-12.0) sec INR (<1.2) Sodium (137-145) mmol/L Calcium (8.4-10.2) mg/dL Troponin I 0.167 H* (0.000-0.034) ng/mL
[2021-05-31] MEDS ORDERED: WARFARIN 3 MG TAB PO ONE (23:45)
[2021-06-01 09:16] LABS: INR 1.5 (<1.2); Prothrombin Time 15.5 sec (9.0-12.0)
--- NOTE | 2021-06-01 09:36 | P.CRDCN ---
History of Present Illness History of present illness: 81-year-old gentleman with history of permanent atrial fibrillation status post pacemaker on May 27 comes to Hospital having had an episode of syncope at home. Patient states that he was walking outside in the form felt dizzy unwell and then found himself on the floor. He did not have any episodes of chest pain. Did not have shortness of breath. No history of leg edema PND or ortho pnea. There is no history of focal neurological deficits. Since being admitted to hospital patient has is doing. Remains in atrial fibrillation and does not have any orthostatic changes there is mild troponin elevation of unclear clinical significance. He is on Coumadin INR is subtherapeutic at 1.4. EKG shows atrial fibrillation with PVCs and random pacer spikes. Troponins were at 0.1 and 0.1 creatinine is normal at 0.8. D-dimer is elevated at 3.2. I will obtain a computed tomography scan of the chest to rule out pulmonary embolism. I'm going to get the device checked today. Up pain and 2-D echo to assess LV function and wall motion to rule out any pericardial effusion. Constitutional: Denies chills. Denies fever. Eyes: Denies blurred vision. Denies pain. Ears, nose, mouth and throat: Denies headache. Denies sore throat. Cardiovascular: Denies chest pain. Denies shortness of breath. Significant for syncope Respiratory: Denies cough. Gastrointestinal: Denies abdominal pain. Denies diarrhea. Denies nausea. Denies vomiting. Musculoskeletal: Denies myalgias. Integumentary: Denies pruritus. Denies rash. Neurological: Denies numbness. Denies weakness. Psychiatric: Denies anxiety. Denies depression. Endocrine: Denies fatigue. Denies weight change. Genitourinary: Denies burning, hematuria, frequency of urination. Hematological: No anemia or excess bleeding. General: The patient is awake and alert, in no distress, and does not appear acutely ill. Skin: Skin is warm and dry and no rashes or lesions are noted. Eye: Pupils are equal, round and reactive to light, extra-ocular movements are intact; there is normal conjunctiva bilaterally. Ears, nose, mouth and throat: There are moist mucous membranes and no oral lesions. Neck: The neck is supple, there is no tenderness or JVD. Cardiovascular: There is a regular rhythm ythm. Systolic murmur at the apex, rub or gallop is appreciated. Respiratory: Lungs are clear to auscultation, respirations are non-labored, breath sounds are equal. Gastrointestinal: Soft, non-distended, non-tender abdomen without masses or organomegaly noted. There is no rebound or guarding present. Bowel sounds are unremarkable. Back: There is no tenderness to palpation in the midline. There is no obvious deformity. Musculoskeletal: Normal ROM, no tenderness, There is no pedal edema. There is no calf tenderness or swelling. Extremities: No edema. Vascular: Femoral pulse is normal. Posterior tibial pulses are normal .Dorsalis pedis is palpable. Neurological: CN II-XII intact. There are no obvious motor or sensory deficits. Speech is normal. Psychiatric: Cooperative, appropriate mood & affect, normal judgment. Labs show that the INR is subtherapeutic at 1.5 d-dimer is elevated chest x-ray is unremarkable Troponins are mildly elevated Assessment and plan Syncope rule out cardiac causes Permanent atrial fibrillation Status post recent upgrade of the pacemaker I will obtain a 2-D echo computed tomography scan of the chest secondary to elevated d-dimer check the device checked Past Medical History Past Medical History: Asthma, Cancer, Deep Vein Thrombosis (DVT), Prostate Disorder, Pulmonary Embolus (PE) Additional Past Medical History / Comment(s): hx diverticulitis, bradycardia, SOB on excertion, gout, hx kidney stones, hx prostate cancer- tx with radioactive implants, skin cancer left corner of mouth. on rx for abcess cyst on back of neck History of Any Multi-Drug Resistant Organisms: None Reported Past Surgical History: Appendectomy, Bowel Resection, Heart Catheterization, Pac emaker Additional Past Surgical History / Comment(s): yady filter, co lostomy/later reversal, surgery for kidney stones, Past Anesthesia/Blood Transfusion Reactions: No Reported Reaction Type of Cardiac Device: Permanent Pacemaker Device Placement Date:: 2011 Past Psychological History: No Psychological Hx Reported Smoking Status: Former smoker Past Alcohol Use History: Occasional Past Drug Use History: None Reported - Past Family History Mother Family Medical History: No Reported History Medications and Allergies Home Medications Medication Instructions Recorded Confirmed Type Warfarin [Coumadin] 5 mg PO MOWEFR@209909/07/14 05/31/21 History Warfarin [Coumadin] 2.5 mg PO SUTUTHSA@2100 01/25/17 05/31/21 History Allergies Allergy/AdvReac Type Severity Reaction Status Date / Time Fish Containing Products Allergy Rash/Hives, Verified 05/31/21 18:27 [Fish] swelling, "asthma attack" peanut Allergy Unknown Verified 05/31/21 18:27 shellfish derived Allergy Rash/Hives, Verified 05/31/21 18:27 swelling,"asthma attack" Sulfa (Sulfonamide Allergy Unknown Verified 05/31/21 18:27 Antibiotics) Physical Exam Vitals: Vital Signs Temp Pulse Pulse Pulse Pulse Pulse Resp 06/01/21 08:38 50 L 55 L 63 50 L 06/01/21 08:00 49 L 18 06/01/21 06:00 49 L 16 06/01/21 05:00 49 L 18 06/01/21 04:00 49 L 18 06/01/21 03:00 52 L 16 06/01/21 02:00 50 L 16 06/01/21 01:00 49 L 18 06/01/21 00:00 52 L 18 05/31/21 22:32 49 L 18 05/31/21 19:22 53 L 18 05/31/21 18:00 54 L 18 05/31/21 17:20 58 L 05/31/21 17:00 59 L 18 05/31/21 15:58 97.8 F 50 L 16 BP BP BP BP Pulse Ox 06/01/21 08:38 138/83 147/69 150/81 06/01/21 08:00 145/80 96 06/01/21 06:00 96 06/01/21 05:00 126/91 06/01/21 04:00 135/75 97 06/01/21 03:00 128/72 06/01/21 02:00 129/75 97 06/01/21 01:00 133/78 97 06/01/21 00:00 133/79 05/31/21 22:32 126/73 97 05/31/21 19:22 157/86 96 05/31/21 18:00 136/94 97 05/31/21 17:20 05/31/21 17:00 140/80 98 05/31/21 15:58 150/75 97 Intake and Output 05/31/21 06/01/21 06/01/21 22:59 06:59 14:59 Other: Weight 88.451 kg Results 05/31/21 17:07 05/31/21 17:07 Cardiac Enzymes 05/31/21 06/01/21 Range/Units 17:07 00:15 Troponin I 0.167 H* 0.190 H* (0.000-0.034) ng/mL Coagulation 05/31/21 06/01/21 Range/Units 17:07 08:26 PT 14.3 H 15.5 H (9.0-12.0) sec APTT 24.1 (22.0-30.0) sec CBC 05/31/21 Range/Units 17:07 WBC 6.6 (3.8-10.6) k/uL RBC 4.22 L (4.30-5.90) m/uL Hgb 13.4 (13.0-17.5) gm/dL Hct 41.4 (39.0-53.0) % Plt Count 155 (150-450) k/uL Comprehensive Metabolic Panel 05/31/21 Range/Units 17:07 Sodium 136 L (137-145) mmol/L Potassium 4.1 (3.5-5.1) mmol/L Chloride 106 (98-107) mmol/L Carbon Dioxide 22 (22-30) mmol/L BUN 17 (9-20) mg/dL Creatinine 0.82 (0.66-1.25) mg/dL Glucose 87 (74-99) mg/dL Calcium 8.2 L (8.4-10.2) mg/dL Current Medications Generic Name Dose Route Start Last Admin Trade Name Freq PRN Reason Stop Dose Admin Sodium Chloride 1,000 mls @ 20 mls/hr 05/31/21 18:45 06/01/21 01:42 Saline 0.9% IV 20 mls/hr .Q24H [facility] Administration Miscellaneous Information 1 each 05/31/21 23:23 Warfarin Per Pharmacy MISCELLANE DIRECTED PRN Per Protocol Protocol Naloxone HCl 0.2 mg 05/31/21 18:32 Naloxone 0.4 Mg/Ml 1 Ml Vial IV Q2M PRN Opioid Reversal Warfarin Sodium 5 mg 06/01/21 18:00 Warfarin 5 Mg Tab PO 06/02/21 18:01 DAILY@1800 [facility] Warfarin Sodium 2.5 mg 06/03/21 18:00 Warfarin 2.5 Mg Tab PO SuTuThSa@1800 [facility] Warfarin Sodium 5 mg 06/04/21 18:00 Warfarin 5 Mg Tab PO MoWeFr@1800 [facility] Intake and Output 05/31/21 06/01/21 06/01/21 22:59 06:59 14:59 Other: Weight 88.451 kg 05/31/21 17:07 05/31/21 17:07
--- NOTE | 2021-06-01 10:40 | CT ---
EXAMINATION TYPE: CT angio chest DATE OF EXAM: 06/01/2021 COMPARISON: Chest x-ray from yesterday HISTORY: r/o PE. syncope. pacemaker put in on CT DLP: 563.9 mGycm. Automated Exposure Control for Dose Reduction was Utilized. CONTRAST: CTA scan of the thorax is performed with IV Contrast, patient injected with 100ml mL of Isovue 370, p ulmonary embolism protocol. MIP Images are created on CT scanner and reviewed. FINDINGS: LUNGS: The lungs are grossly clear, there is no concerning parenchymal mass or nodule identified. T here is no pleural effusion or pneumothorax seen. The tracheobronchial tree is patent. MEDIASTINUM: There is suboptimal study with most dense contrast in the SVC. No significant central or lobar pulmonary embolism. Some heterogeneity in the periphery without definitive peripheral pulmonar y embolism. There are no greater than 1 cm hilar or mediastinal lymph nodes. Cardiomegaly with single lead pacemaker terminating in right ventricle. Moderate right greater than left biatrial dilatation. Moderate right ventricular dilatation. OTHER: Partial visualization of ventral wall hernia in the midline of the upper abdomen containing po rtion of transverse colon. Contracted gallbladder with dependent small gallstone axial image 168. Und erlying scoliotic curvature or positioning. Scattered calculations throughout the spleen consistent w ith product of old granulomatous disease. IMPRESSION: Suboptimal study without acute pulmonary embolism. Cardiomegaly without suspicious acute pulmonary process.
--- NOTE | 2021-06-01 12:16 | P.PN ---
Subjective Progress Note Date: 06/01/21 The patient is an 81-year-old male with a PMH of permanent A. fib with bradycardia on Coumadin, status post pacemaker placement who presents to the emergency room for syncope and fall. The patient [place] around to get some exercise when he suddenly developed severe lightheadedness, and then lost consciousness. He woke up after an unknown amount of time on the ground, realizing that he had hit chin and nose on the ground, hitting the gravel dirt road. Of note, the patient recently underwent the placement of a new biventricular pacemaker ([employer]) placement by Dr. Rodriguez on 05/27/21. The patient does report that ever since the placement of this new pacemaker, that he has felt lightheaded, especially when standing up quickly or bending down. He denied symptoms of vertigo, and denied any symptoms with turning his head while laying in bed. He further denied chest discomfort, shortness of breath, nausea, vomiting, diaphoresis, abdominal pain. Denied fever, chills, cough. Does not recall experiencing palpitations, chest discomfort, or shortness of breath prior to losing consciousness. He underwent an extensive evaluation in the emergency room with a CT brain and cervical spine without contrast showing mild straightening of the spine, possible spasm with no acute abnormalities. An EKG revealed A. fib at 62 bpm with poor R-wave progression, and T-wave inversion in leads 2, 3, aVF. Chest x-ray revealed cardiomegaly but otherwise unremarkable. Pelvis x-ray was also unremarkable. Laboratory evaluation revealed a troponin of 0.167. 06/01: Patient states that he is still having dizziness. 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 He states his nosebleed has resolved. Patient was seen by cardiology for syncope rule out cardiac causes. Echocardiogram has been ordered and CTA. Echocardiogram report is pending. Pacemaker device check is to occur today. INR is 1.5. D-dimer was 3.29. Troponins 0.[address] angiogram of the chest revealed suboptimal study without acute pulmonary embolism. Cardiomegaly without suspicious acute pulmonary process. Review Of Systems: Constitutional: No fever, no chills, no night sweats. No weight change. No weakness, fatigue or lethargy. No daytime sleepiness. EENT: No headache. No blurred vision or double vision, no loss of vision. No loss of Hearing, no ringing in the ears, no dizziness. No nasal drainage or congestion. No epistaxis. No sore throat. Denies epistaxis Lungs: No shortness of breath, cough, no sputum production. No wheezing. Cardiovascular: No chest pain, no lower extremity edema. No palpitations. No paroxysmal nocturnal dyspnea. No orthopnea. Reports dizziness. No syncopal episodes. Abdominal: No abdominal pain. No nausea, vomiting. No diarrhea. No constipation. No bloody or tarry stools.. No loss of appetite. Genitourinary: No dysuria, increased frequency, urgency. No urinary retention. Musculoskeletal: No myalgias. No muscle weakness, no gait dysfunction, no frequent falls. No back pain. No neck pain. Integumentary: No wounds, no lesions. No rash or pruritus. No unusual bruising. No change in hair or nails. Neurologic: No aphasia. No facial droop. No change in mentation. No head injury. No headache. No paralysis. No paresthesia. Psychiatric: No depression. No anxiety. No mood swings. Endocrine: No abnormal blood sugars. No weight change. No excessive sweating or thirst. No cold intolerance. Physical examination: General: He is seen today in the emergency center sitting on edge of the bed. He appears to be in no acute distress. Derm: Chin elevated abrasion superficial, nasal tip and bridge mild ecchymosis, warm, dry Head: atraumatic, normocephalic, symmetric Eyes: EOMI, no lid lag, anicteric sclera, pupils equal round reactive to light ENT: Nose and ears atraumatic, no thrush, no pharyngeal erythema Neck: No thyromegaly, no cervical lymphadenopathy, trachea midline, supple Mouth: no lip lesion, mucus membranes moist Cardiovascular: Bradycardia, irregularly irregular, no murmur, positive posterior tibial pulse bilateral, no edema, capillary refill less than 2 seconds Lungs: CTA bilateral, no rhonchi, no rales , no accessory muscle use Abdominal: soft, nontender to palpation, no guarding, no appreciable organomegaly, normal bowel sounds Ext: no gross muscle atrophy, muscle strength 5 out of 5 in all 4 extremities grossly, no contractures, Neuro: CN II-XI grossly intact, light touch intact all 4 extremities, finger to nose within normal limits, Psych: Alert, oriented, appropriate affect Assessment/plan Syncope in setting of A. fib with RVR and recent placement of new pacemaker -Cardiac monitoring -Fall precautions -Cardiology appreciated, echocardiogram and pacemaker check Elevated troponin, patient denying chest discomfort or shortness of breath at this time -May be due to recent pacemaker placement -Trend for now Subtherapeutic INR on Coumadin -Per pharmacy dosing DVT prophylaxis -Coumadin CODE STATUS: Full Code DISCHARGE PLAN Impression and plan of care have been directed as dictated by the signing physician. Chelsie Vargas nurse practitioner acting as scribe for signing physician. Objective - Vital Signs Vital signs: Vital Signs Temp 97.8 F 05/31/21 15:58 Pulse 49 L 06/01/21 08:00 Resp 18 06/01/21 08:00 BP 145/80 06/01/21 08:00 Pulse Ox 96 06/01/21 08:00 Intake & Output 05/31/21 06/01/21 06/01/21 18:59 06:59 18:59 Weight 88.451 kg - Labs CBC & Chem 7: 05/31/21 17:07 05/31/21 17:07 Labs: Abnormal Lab Results - Last 24 Hours (Table) 05/31/21 05/31/21 05/31/21 Range/Units 17:07 17:07 17:07 RBC 4.22 L (4.30-5.90) m/uL Lymphocytes # 0.8 L (1.0-4.8) k/uL PT 14.3 H (9.0-12.0) sec INR 1.4 H (<1.2) Sodium 136 L (137-145) mmol/L Calcium 8.2 L (8.4-10.2) mg/dL Troponin I (0.000-0.034) ng/mL 05/31/21 06/01/21 Range/Units 17:07 00:15 RBC (4.30-5.90) m/uL Lymphocytes # (1.0-4.8) k/uL PT (9.0-12.0) sec INR (<1.2) Sodium (137-145) mmol/L Calcium (8.4-10.2) mg/dL Troponin I 0.167 H* 0.190 H* (0.000-0.034) ng/mL
--- NOTE | 2021-06-01 17:22 | CA ---
Transthoracic Echo Report Name: Eliceo Rose Age: 81 Gender: M : 1940 Exam Date: 06/01/2021 10:52 Exam Location: [facility] Ht (in): 70 Wt (lb): 195 Ordering Physician: Arvind Raman MD ([id number]) Attending/Referring Phys: Danisha CLEMONS Douper [place] Talbert RDCS Procedure CPT: Indications: syncope/recent pacemaker placement Cardiac Hx: Pacemaker Technical Quality: Fair Contrast 1: Total Dose (mL): Contrast 2: Total Dose (mL): MEASUREMENTS (Male / Female) Normal Values 2D ECHO LV Diastolic Diameter PLAX 4.7 cm 4.2 - 5.9 / 3.9 - 5.3 cm LV Systolic Diameter PLAX 3.1 cm IVS Diastolic Thickness 1.2 cm 0.6 - 1.0 / 0.6 - 0.9 cm LVPW Diastolic Thickness 1.1 cm 0.6 - 1.0 / 0.6 - 0.9 cm LV Relative Wall Thickness 0.5 RV Internal Dim ED PLAX 2.9 cm LA Systolic Diameter LX 3.2 cm 3.0 - 4.0 / 2.7 - 3.8 cm M-MODE Aortic Root Diameter MM 3.3 cm MV E Point Septal Separation 0.9 cm AV Cusp Separation MM 2.4 cm DOPPLER AV Peak Velocity 92.2 cm/s AV Peak Gradient 3.4 mmHg MV E' Velocity 4.1 cm/s TR Peak Velocity 275.9 cm/s TR Peak Gradient 30.5 mmHg Right Ventricular Systolic Press 34.3 mmHg FINDINGS Left Ventricle Left ventricular ejection fraction is estimated at 55-60 %. Left ventricular cavity size normal. Borderline left ventricular hypertrophy. Right Ventricle Normal right ventricular size and function. Mild pulmonary hypertension. Right Atrium Normal right atrial size. Left Atrium Normal left atrial size. Mitral Valve Structurally normal mitral valve. Aortic Valve Trileaflet aortic valve. Tricuspid Valve Mild tricuspid regurgitation. Pulmonic Valve Pulmonic valve not well visualized. Pericardium Normal pericardium. Aorta Normal size aortic root and proximal ascending aorta. CONCLUSIONS LV size and systolic function is normal with borderline concentric LVH. Mild mitral and tricuspid insufficiency. No pericardial effusion Previewed by: Dr. Isabel Stephenson MD (Electronically Signed) Final Date: 01 June 2021 17:21
[2021-06-01] MEDS ORDERED: WARFARIN 5 MG TAB PO SCH (20:00)
[2021-06-01 23:46] VITALS: PULSE 50
[2021-06-02 07:33] LABS: INR 1.9 (<1.2); Prothrombin Time 19.6 sec (9.0-12.0)
[2021-06-02 09:23] VITALS: TEMP 97.6
--- NOTE | 2021-06-02 12:13 | P.PN ---
Subjective Progress Note Date: 06/02/21 The patient is an 81-year-old male with a PMH of permanent A. fib with bradycardia on Coumadin, status post pacemaker placement who presents to the emergency room for syncope and fall. The patient [place] around to get some exercise when he suddenly developed severe lightheadedness, and then lost consciousness. He woke up after an unknown amount of time on the ground, realizing that he had hit chin and nose on the ground, hitting the gravel dirt road. Of note, the patient recently underwent the placement of a new biventricular pacemaker ([employer]) placement by Dr. Rodriguez on 05/27/21. The patient does report that ever since the placement of this new pacemaker, that he has felt lightheaded, especially when standing up quickly or bending down. He denied symptoms of vertigo, and denied any symptoms with turning his head while laying in bed. He further denied chest discomfort, shortness of breath, nausea, vomiting, diaphoresis, abdominal pain. Denied fever, chills, cough. Does not recall experiencing palpitations, chest discomfort, or shortness of breath prior to losing consciousness. He underwent an extensive evaluation in the emergency room with a CT brain and cervical spine without contrast showing mild straightening of the spine, possible spasm with no acute abnormalities. An EKG revealed A. fib at 62 bpm with poor R-wave progression, and T-wave inversion in leads 2, 3, aVF. Chest x-ray revealed cardiomegaly but otherwise unremarkable. Pelvis x-ray was also unremarkable. Laboratory evaluation revealed a troponin of 0.167. 06/01: Patient states that he is still having dizziness. Heart rate is running in the 50s, alarm security or surveillance monitor and atrial fibrillation. He states his nosebleed has resolved. Patient was seen by cardiology for syncope rule out cardiac causes. Echocardiogram has been ordered and CTA. Echocardiogram report is pending. Pacemaker device check is to occur today. INR is 1.5. D-dimer was 3.29. Troponins 0.[address] angiogram of the chest revealed suboptimal study without acute pulmonary embolism. Cardiomegaly without suspicious acute pulmonary process. 06/02: Patient is seen today on the cardiac stepdown unit. Heart rate is still running in the 40s and 50s and EKG does not show clear-cut capture. Cardiology has had the device tax compliance representative adjust pacemaker. Patient may be cleared later for discharge by cardiology. Patient currently does not have any symptoms while resting in bed. Blood pressure is been stable 132/72 and he has been afebrile. INR is 1.9. Echocardiogram reveals normal LV function with borderline concentric left ventricular hypertrophy. Mild mitral and tricuspid insufficiency. No pericardial effusion. Review Of Systems: Constitutional: No fever, no chills, no night sweats. No weight change. No weakness, fatigue or lethargy. No daytime sleepiness. EENT: No headache. No blurred vision or double vision, no loss of vision. No loss of Hearing, no ringing in the ears, no dizziness. No nasal drainage or congestion. No epistaxis. No sore throat. Denies epistaxis Lungs: No shortness of breath, cough, no sputum production. No wheezing. Cardiovascular: No chest pain, no lower extremity edema. No palpitations. No paroxysmal nocturnal dyspnea. No orthopnea. Reports dizziness. Reported syncopal episodes. Abdominal: No abdominal pain. No nausea, vomiting. No diarrhea. No constipation. No bloody or tarry stools.. No loss of appetite. Genitourinary: No dysuria, increased frequency, urgency. No urinary retention. Musculoskeletal: No myalgias. No muscle weakness, no gait dysfunction, no frequent falls. No back pain. No neck pain. Integumentary: No wounds, no lesions. No rash or pruritus. No unusual bruising. No change in hair or nails. Neurologic: No aphasia. No facial droop. No change in mentation. No head injury. No headache. No paralysis. No paresthesia. Psychiatric: No depression. No anxiety. No mood swings. Endocrine: No abnormal blood sugars. No weight change. No excessive sweating or thirst. No cold intolerance. Physical examination: General: He is seen today resting bed. He appears to be in no acute distress. Derm: Chin elevated abrasion superficial, nasal tip and bridge mild ecchymosis, warm, dry Head: atraumatic, normocephalic, symmetric Eyes: EOMI, no lid lag, anicteric sclera, pupils equal round reactive to light ENT: Nose and ears atraumatic, no thrush, no pharyngeal erythema Neck: No thyromegaly, no cervical lymphadenopathy, trachea midline, supple Mouth: no lip lesion, mucus membranes moist Cardiovascular: Bradycardia, irregularly irregular, no murmur, positive posterior tibial pulse bilateral, no edema, capillary refill less than 2 seconds Lungs: CTA bilateral, no rhonchi, no rales , no accessory muscle use Abdominal: soft, nontender to palpation, no guarding, no appreciable organomegaly, normal bowel sounds Ext: no gross muscle atrophy, muscle strength 5 out of 5 in all 4 extremities grossly, no contractures, Neuro: CN II-XI grossly intact, light touch intact all 4 extremities, finger to nose within normal limits, Psych: Alert, oriented, appropriate affect Assessment/plan Syncope in setting of A. fib with RVR and recent placement of new pacemaker -Cardiac monitoring -Fall precautions -Cardiology appreciated Pacemaker adjustment Elevated troponin, patient denying chest discomfort or shortness of breath at this time -May be due to recent pacemaker placement -Trend for now Subtherapeutic INR on Coumadin -Per pharmacy dosing DVT prophylaxis -Coumadin CODE STATUS: Full Code DISCHARGE PLAN Home Impression and plan of care have been directed as dictated by the signing physician. Chelsie Vargas nurse practitioner acting as scribe for signing physic abhinav. Objective - Vital Signs Vital signs: Vital Signs Temp 97.6 F 06/02/21 08:00 Pulse 50 L 06/02/21 08:00 Resp 17 06/02/21 08:00 BP 132/72 06/02/21 08:00 Pulse Ox 96 06/02/21 08:00 Intake & Output 06/01/21 06/02/21 06/02/21 18:59 06:59 18:59 Intake Total 240 Output Total 400 Balance -160 Weight 87.09 kg Intake: Oral 240 Output: Urine 400 Other: # Voids 1 - Labs CBC & Chem 7: 05/31/21 17:07 05/31/21 17:07 Labs: Abnormal Lab Results - Last 24 Hours (Table) 06/02/21 Range/Units 06:25 PT 19.6 H (9.0-12.0) sec INR 1.9 H (<1.2)
[2021-06-02 12:21] VITALS: BP 136/70; RESP 16
--- NOTE | 2021-06-02 13:34 | P.DS ---
Providers Date of admission: 05/31/21 18:32 Expected date of discharge: 06/02/21 Attending physician: Aldair Root Consults: 05/31/21 18:33 Consult Physician Routine Consulting Provider: Samir Rodriguez Consult Reason/Comments: syncope Do you want consulting provider notified?: Yes Primary care physician: [facility] Course: The patient is an 81-year-old male with a PMH of permanent A. fib with bradycardia on Coumadin, status post pacemaker placement who presents to the emergency room for syncope and fall. The patient [place] that [place], [place] to walk around to get some exercise when he suddenly developed severe lightheadedness, and then lost consciousness. He woke up after an unknown amount of time on the ground, realizing that he had hit chin and nose on the ground, hitting the gravel dirt road. Of note, the patient recently underwent the placement of a new biventricular pacemaker ([employer]) placement by Dr. Rodriguez on 05/27/21. The patient does report that ever since the placement of this new pacemaker, that he has felt lightheaded, especially when standing up quickly or bending down. He denied symptoms of vertigo, and d enied any symptoms with turning his head while laying in bed. He further denied chest discomfort, shortness of breath, nausea, vomiting, diaphoresis, abdominal pain. Denied fever, chills, cough. Does not recall experiencing palpitations, chest discomfort, or shortness of breath prior to losing consciousness. He underwent an extensive evaluation in the emergency room with a CT brain and cervical spine without contrast showing mild straightening of the spine, possible spasm with no acute abnormalities. An EKG revealed A. fib at 62 bpm with poor R-wave progression, and T-wave inversion in leads 2, 3, aVF. Chest x- ray revealed cardiomegaly but otherwise unremarkable. Pelvis x-ray was also unremarkable. Laboratory evaluation revealed a troponin of 0.167. 06/01: Patient states that he is still having dizziness. Heart rate is running in the 50s, nurse monitoring and atrial fibrillation. He states his nosebleed has resolved. Patient was seen by cardiology for syncope rule out cardiac causes. Echocardiogram has been ordered and CTA. Echocardiogram report is pending. Pacemaker device check is to occur today. INR is 1.5. D-dimer was 3.29. Troponins 0.[address] angiogram of the chest revealed suboptimal study without acute pulmonary embolism. Cardiomegaly without suspicious acute pulmonary process. 06/02: Patient is seen today on the cardiac stepdown unit. Heart rate is still running in the 40s and 50s and EKG does not show clear-cut capture. Cardiology has had the device territory account representative adjust pacemaker. Patient may be cleared later for discharge by cardiology. Patient currently does not have any symptoms while resting in bed. Blood pressure is been stable 132/72 and he has been afebrile. INR is 1.9. Echocardiogram reveals normal LV function with borderline concentric left ventricular hypertrophy. Mild mitral and tricuspid insufficiency. No pericardial effusion. DISCHARGE DIAGNOSES Syncope possibly related to failure of pacemaker, settings adjusted Permanent atrial fibrillation A. fib with RVR Elevated troponin, acute coronary syndrome ruled out Subtherapeutic INR on Coumadin DISCHARGE PLAN Home Greater than 35 minutes was utilized and coordinating patient's discharge. Impression and plan of care have been directed as dictated by the signing physician. Chelsie Vargas nurse practitioner acting as scribe for signing physician. Patient Condition at Discharge: Good Plan - Discharge Summary Discharge Rx Participant: No New Discharge Prescriptions: Continue Warfarin [Coumadin] 5 mg PO MOWEFR@2100 Warfarin [Coumadin] 2.5 mg PO SUTUTHSA@2100 Discharge Medication List Warfarin [Coumadin] 5 mg PO MOWEFR@2100 09/07/14 [History] Warfarin [Coumadin] 2.5 mg PO SUTUTHSA@2100 01/25/17 [History] Follow up Appointment(s)/Referral(s): Phoenix Mi MD [Primary Care Provider] - 1 Week Samir Rodriguez MD [STAFF PHYSICIAN] - 1 Week Discharge Disposition: HOME SELF-CARE
--- NOTE | 2021-06-02 13:51 | P.PN ---
Subjective Progress Note Date: 06/02/21 HISTORY OF PRESENT ILLNESS: 81-year-old gentleman with history of permanent atrial fibrillation status post pacemaker on May 27 comes to Hospital having had an episode of syncope at home. Patient states that he was walking outside in the form felt dizzy unwell and then found himself on the floor. He did not have any episodes of chest pain. Did not have shortness of breath. No history of leg edema PND or orthopnea. There is no history of focal neurological deficits. Since being admitted to hospital patient has is doing. Remains in atrial fibrillation and does not have any orthostatic changes there is mild troponin elevation of unclear clinical significance. He is on Coumadin INR is subtherapeutic at 1.4. EKG shows atrial fibrillation with PVCs and random pacer spikes. Troponins were at 0.1 and 0.1 creatinine is normal at 0.8. D-dimer is elevated at 3.2. I will obtain a computed tomography scan of the chest to rule out pulmonary embolism. I'm going to get the device checked today. Up pain and 2-D echo to assess LV function and wall motion to rule out any pericardial effusion. 06/02/2021 Patient examined this morning at the bedside. Patient reports feeling dizzy and lightheaded. He remains bradycardic. EKG completed with an appropriate pacemaker sensing and capture. Device rep in this morning and adjustments were made to the patients device with improvement in his symptoms PHYSICAL EXAM: VITAL SIGNS: Reviewed. GENERAL: Well-developed in no acute distress. NECK: Supple. No JVD or thyromegaly LUNGS: Respirations even and unlabored. Lungs essentially clear to auscultation bilaterally. HEART: Regular rate and rhythm. S1 and S2 heard. EXTREMITIES: Normal range of motion. No clubbing or cyanosis. Peripheral pulses intact. No lower extremity edema ASSESSMENT: Syncope secondary to inappropriate sensing of pacemaker Recent pacemaker upgrade Permanent atrial fibrillation PLAN: Continue current medications Increase activity and continue to monitor telemetry If patient remains stable, he may be discharged home this afternoon Nurse practitioner note has been reviewed by physician. Signing provider agrees with the documented findings, assessment, and plan of care. Objective - Vital Signs Vital signs: Vital Signs Temp 97.6 F 06/02/21 08:00 Pulse 50 L 06/02/21 12:00 Resp 16 06/02/21 12:00 BP 136/70 06/02/21 12:00 Pulse Ox 96 06/02/21 12:00 Intake & Output 06/01/21 06/02/21 06/02/21 18:59 06:59 18:59 Intake Total 240 Output Total 400 Balance -160 Weight 87.09 kg Intake: Oral 240 Output: Urine 400 Other: Voiding Method Toilet # Voids 1 - Labs CBC & Chem 7: 05/31/21 17:07 05/31/21 17:07 Labs: Abnormal Lab Results - Last 24 Hours (Table) 06/02/21 Range/Units 06:25 PT 19.6 H (9.0-12.0) sec INR 1.9 H (<1.2)
[2021-06-02] MEDS ORDERED: WARFARIN 2 MG TAB PO ONE (18:00)
[2021-06-03] MEDS ORDERED: WARFARIN 2.5 MG TAB PO SCH (18:00)
[2021-06-04] MEDS ORDERED: WARFARIN 5 MG TAB PO SCH (18:00)
== END 2021-06-02 15:50 | disposition home or self-care (01) ==
LOC: EC 15:20 → 3SCARD 18:32
PROVIDERS: ADMIT Internal Medicine Geriatric Medicine; ATTEND Internal Medicine Geriatric Medicine
DX: T82.897A Other specified complication of cardiac prosthetic devices, implants and grafts, initial encounter (principal); R55 Syncope and collapse; I48.21 Permanent atrial fibrillation; Z95.0 Presence of cardiac pacemaker; I08.1 Rheumatic disorders of both mitral and tricuspid valves; R79.89 Other specified abnormal findings of blood chemistry; I49.3 Ventricular premature depolarization; R79.1 Abnormal coagulation profile; J45.909 Unspecified asthma, uncomplicated; M10.9 Gout, unspecified; H81.10 Benign paroxysmal vertigo, unspecified ear; S00.33XA Contusion of nose, initial encounter; S00.81XA Abrasion of other part of head, initial encounter; Z79.01 Long term (current) use of anticoagulants; Z91.010 Allergy to peanuts; Z91.013 Allergy to seafood; Z88.2 Allergy status to sulfonamides; Z91.018 Allergy to other foods; Z86.711 Personal history of pulmonary embolism; Z86.718 Personal history of other venous thrombosis and embolism; Z85.828 Personal history of other malignant neoplasm of skin; Z85.46 Personal history of malignant neoplasm of prostate; Z87.442 Personal history of urinary calculi; Z87.19 Personal history of other diseases of the digestive system; Z95.828 Presence of other vascular implants and grafts; Z90.49 Acquired absence of other specified parts of digestive tract; Z87.891 Personal history of nicotine dependence; Z98.890 Other specified postprocedural states; W18.30XA Fall on same level, unspecified, initial encounter; Y93.01 Activity, walking, marching and hiking; Y92.007 Garden or yard of unspecified non-institutional (private) residence as the place of occurrence of the external cause
CPT/HCPCS: 90471; 99285; 36415; 93005; 93306; 85379; 80048; 84484 ×2; 85025; 85610 ×3; 85730; 72170; 71045; 72125; 70450; 71275; 90715; G0378 ×3; Q9967

== ENCOUNTER → 2021-06-18 | Outpatient (CLI) | payer MEDICARE, BC ==
--- NOTE | 2021-06-18 12:39 | US ---
EXAMINATION TYPE: US venous doppler duplex UE LT DATE OF EXAM: 06/18/2021 COMPARISON: NONE CLINICAL HISTORY: R22.32 SWELLING, MASS AND LUMP, LEFT UPPER LIMB. Swelling in left arm and hand x 1 week. Patient had pacemaker procedure about 2 weeks ago. Patient states he has had a clot in his lung about 20 years ago. Patient is on coumadin. SIDE PERFORMED: Left Left Arm: Internal echoes seen within the left IJV, subclavian vein, axillary vein, basilic vein at e lbow, and cephalic vein at elbow. Limited visibility of subclavian vein. Axillary vein, cephalic vei n at elbow, and basilic vein at elbow do not compress. Compressions deferred in IJV due to internal e choes seen. Hypoechoic area with hyperechoic center seen in the left neck: 2.2 x 1.3 x 2.5 cm. IMPRESSION: 1. Findings compatible with DVT left upper extremity as noted. 2. Adenopathy.
== END | disposition home or self-care (01) ==
LOC: RADUSWWP 11:42
PROVIDERS: ATTEND Internal Medicine Clinical Cardiac Electrophysiology
DX: R59.9 Enlarged lymph nodes, unspecified (principal); Z79.01 Long term (current) use of anticoagulants; Z95.0 Presence of cardiac pacemaker

== ENCOUNTER → 2022-08-08 | Outpatient (CLI) | payer MEDICARE, BC ==
--- NOTE | 2022-08-08 14:52 | CT ---
EXAMINATION TYPE: CT lumbar spine wo con DATE OF EXAM: 08/08/2022 2:04 PM COMPARISON: None HISTORY: low back pain no injury CT DLP: 977 mGycm Automated exposure control for dose reduction was used. Unenhanced CT of the lumbar spine was performed. Bone and soft tissue window settings are submitted as well as coronal and sagittal reconstructions. L1-L2: Normal disc space height. No disc herniation protrusion or central stenosis. No facet joint arthropathy. No evidence for foraminal encroachment. L2-L3: Mild degenerative disc space narrowing with posterior disc bulge. Effacement of the ventral th ecal sac. There is mild hypertrophy of the ligamentum flavum and facet joint arthropathy resulting in borderline to mild central stenosis. There is mild left foraminal narrowing seen. L3-L4: There is of grade 1 retrolisthesis of L3 and L4 measuring 3.8 mm. There is [id number] de generative disc disease with posterior disc bulge and mild central stenosis. Mild bilateral neural fo raminal encroachment seen. L4-L5: Grade 1 retrolisthesis L4 on L5 measuring 6.6 mm. Moderate degenerative disc space narrowing. Posterior disc bulge with mild central stenosis. L5-S1: There appears to be transitional segment with partial sacralization of L5 as there does appear to be 12 ribs there is grade 1 anterolisthesis L5 on S1 measuring 8 mm. There is bilateral spondylol isthesis. Vacuum disc noted with posterior disc bulge and partial encapsulating spur resulting in dis c endplate complex. No definite central stenosis appreciated. Right sided retroperitoneal mass adjacent to the IVC and appears to partially encase the IVC. IVC laura ter is noted to be in place. Assess measures approximately 8.6 cm craniocaudal dimension by 3.8 cm tr ansverse dimension. This could reflect conglomerate adenopathy. Mass of other etiology is not exclude d. Incidental gallstone. IMPRESSION: 1.Right sided retroperitoneal mass adjacent to the IVC and appears to partially encase the IVC. IVC f ilter is noted to be in place. This could reflect conglomerate adenopathy. Mass of other etiology is not excluded. 2. Transitional vertebral segment felt to reflect partial sacralization of L5 however prior to any sc heduled intervention radiographic correlation is recommended. 3. Multilevel degenerative disc disease as well as spondylolisthesis as discussed and central stenosi s.
== END | disposition home or self-care (01) ==
LOC: RADCTMAIN 13:27
PROVIDERS: ATTEND Physical Medicine & Rehabilitation
DX: M47.817 Spondylosis without myelopathy or radiculopathy, lumbosacral region (principal); M43.16 Spondylolisthesis, lumbar region; M99.73 Connective tissue and disc stenosis of intervertebral foramina of lumbar region; R19.09 Other intra-abdominal and pelvic swelling, mass and lump
CPT/HCPCS: 72131

== ENCOUNTER → 2022-09-12 | Outpatient (CLI) | payer MEDICARE, BC ==
--- NOTE | 2022-09-12 23:26 | CT ---
EXAMINATION TYPE: CT abdomen wo con DATE OF EXAM: 09/12/2022 COMPARISON: CT 08/08/2022 lumbar spine INDICATION: Intra-abdominal and pelvic swelling. DLP: 401.8 mGycm, Automated exposure control for dose reduction was used. CONTRAST: 0 mL of Isovue 300. Study performed with Oral Contrast TECHNIQUE: Axial images were obtained from above the diaphragm to the pubic rami in the axial plane a t 5 mm thick sections. Reconstructed images are reviewed on the computer in the coronal plane. FINDINGS: Limited CT sections are obtained the lung bases. The lung bases are clear. Coronary artery calcific ations present. CT ABDOMEN: Within the retroperitoneal space posterior lateral to the inferior vena cava and medial t o the kidney is a soft tissue mass. This appears to lie inferior to the right adrenal gland. Consider additional evaluation with contrast separation from the inferior vena cava is not clearly delineated . This area measures 6.0 x 3.5 x 9.1 cm. Liver: Normal Spleen: Stable scattered calcifications are within the spleen. Pancreas: Normal Adrenal glands: The adrenal glands are normal. Gallbladder: Normal Kidneys: No masses are evident. No hydronephrosis is present. No cysts are present. Delayed images were obtained through the kidneys, which remain unremarkable. Aorta: Vascular calcification is within the aorta. Inferior vena cava: Filter is within the inferior vena cava. CT PELVIS: There is an anterior abdominal wall hernia containing loops of colon. No obstruction is ev ident. Loops of bowel within the abdomen and pelvis are normal. There are loops of bowel which are incom pletely distended or lack oral contrast limiting their evaluation. IMPRESSIONS: 1. Retroperitoneal mass medial to the kidney and difficult to separate from the inferior vena cava. Additional workup is recommended
== END | disposition home or self-care (01) ==
LOC: RADCTMAIN 13:19
PROVIDERS: ATTEND Family Medicine
DX: R19.09 Other intra-abdominal and pelvic swelling, mass and lump (principal)
CPT/HCPCS: 74150

== ENCOUNTER → 2022-09-23 | Outpatient (CLI) | payer MEDICARE, BC ==
[2022-09-23 11:46] LABS: African American GFR (CKD) >90 (>60 ml/min/1.73 sqM); Blood Urea Nitrogen 13 mg/dL (9-20); Non-African American GFR(CKD) 79 (>60 ml/min/1.73 sqM)
--- NOTE | 2022-09-23 17:22 | CT ---
EXAMINATION TYPE: CT abdomen w con DATE OF EXAM: 09/23/2022 COMPARISON: 09/12/2022 INDICATION: right retroperitoneal mass DLP: 949.6 mGycm, Automated exposure control for dose reduction was used. CONTRAST: 100 mL of Isovue 300. Study performed with Oral Contrast TECHNIQUE: Axial images were obtained from above the diaphragm to the pubic rami in the axial plane a t 5 mm thick sections. Reconstructed images are reviewed on the computer in the coronal plane. FINDINGS: Limited CT sections are obtained the lung bases. The lung bases are clear. CT ABDOMEN: Anterior abdominal wall hernia with the nonobstructive colon present. The opening 7.1 cm. Liver: Normal Spleen: Old calcified granuloma within the spleen. Pancreas: Normal Adrenal glands: The adrenal glands are normal. Gallbladder: Gallstones present. Kidneys: No masses are evident. No hydronephrosis is present. No cysts are present. Delayed images were obtained through the kidneys, which remain unremarkable. Aorta: Vascular calcification is within the aorta. Inferior vena cava: There is an inferior vena cava filter present with the tip below the renal veins. Anterior to the inferior vena cava is a 2.1 cm hypodense area. This could be a lymph node near the l evel of the aortic bifurcation present previously. Retroperitoneum: The retroperitoneal mass posterior to the inferior vena cava is again identified. Th is does not appear to enhance. Despite contrast and delayed images contrast timing within the inferio r vena cava does not provide a clear delineation between this mass and the posterior inferior vena ca [place] wall above the level of the IVC filter. IMPRESSIONS: 1. There is better delineation of the retroperitoneal mass on the current examination, separation fr om the posterior inferior vena caval wall remains difficult. Differential could include hematoma, lei omyosarcoma, lymphoma. 2. Additional identification of 2.1 cm density anterior to the more inferior vena cava suspicious for lymph node.
== END | disposition home or self-care (01) ==
LOC: RADCTMAIN 10:57
PROVIDERS: ATTEND Family Medicine
DX: R19.09 Other intra-abdominal and pelvic swelling, mass and lump (principal); J98.4 Other disorders of lung
CPT/HCPCS: 82565; 84520; 74160; 36415; Q9967

== ENCOUNTER → 2022-09-28 | Outpatient (CLI) | payer MEDICARE, BC ==
[2022-09-28 16:46] LABS: INR 1.5 sec (0.93-1.11); Prothrombin Time 16.7 sec (9.9-11.9)
== END | disposition home or self-care (01) ==
LOC: LABWHC1 10:19
PROVIDERS: ATTEND Physical Medicine & Rehabilitation
DX: Z51.81 Encounter for therapeutic drug level monitoring (principal); M43.17 Spondylolisthesis, lumbosacral region; M47.817 Spondylosis without myelopathy or radiculopathy, lumbosacral region; M51.17 Intervertebral disc disorders with radiculopathy, lumbosacral region; M54.51 Vertebrogenic low back pain; M48.062 Spinal stenosis, lumbar region with neurogenic claudication; Z79.01 Long term (current) use of anticoagulants
CPT/HCPCS: 36415; 85610

== ENCOUNTER 2023-10-08 08:40 | Emergency (ER) | payer MEDICARE, BC ==
[2023-10-08 08:52] VITALS: TEMP 98.6
--- NOTE | 2023-10-08 09:35 | ED ---
General Adult HPI - General Chief complaint: Syncope Stated complaint: weakness Time Seen by Provider: 10/08/23 08:54 Source: EMS Mode of arrival: EMS Limitations: no limitations - History of Present Illness Initial comments: Dictation was produced using [employer] dictation software. please excuse any grammatical, word or spelling errors. Chief Complaint: 83-year-old male multiple comorbidities presents to the ER for weakness History of Present Illness: Patient is 83-year-old male started to feel weak last night. He was in the chair and was trying to get up to go to bed. States that he felt so weak. Finally he was able to muster up enough strength to get into bed. States that when he woke up this morning still felt weak. Patient [place] any fall. States that he feels a little lightheaded when he tries to stand up. Patient has multiple comorbidities. Denies any fever, chills or night sweats. No chest pain. No obvious sick contacts. Denies any constitutional symptoms. The ROS documented in this emergency department record has been reviewed and confirmed by me. Those systems with pertinent positive or negative responses have been documented in the HPI. All other systems are other negative and/or noncontributory. - Related Data Home Medications Medication Instructions Recorded Confirmed Warfarin [Coumadin] 5 mg PO MOWEFR@2100 09/07/14 05/31/21 Warfarin [Coumadin] 2.5 mg PO SUTUTHSA@2100 01/25/17 05/31/21 Allergies Allergy/AdvReac Type Severity Reaction Status Date / Time Fish Containing Products Allergy Rash/Hives, Verified 05/31/21 18:27 [Fish] swelling, "asthma attack" peanut Allergy Unknown Verified 05/31/21 18:27 shellfish derived Allergy Rash/Hives, Verified 05/31/21 18:27 swelling,"asthma attack" Sulfa (Sulfonamide Allergy Unknown Verified 05/31/21 18:27 Antibiotics) Review of Systems ROS Statement: Those systems with pertinent positive or pertinent negative responses have been documented in the HPI. ROS Other: All systems not noted in ROS Statement are negative. Past Medical History Past Medical History: Asthma, Cancer, Deep Vein Thrombosis (DVT), Prostate Diso rder, Pulmonary Embolus (PE) Additional Past Medical History / Comment(s): hx diverticulitis, bradycardia, SOB on excertion, gout, hx kidney stones, hx prostate cancer- tx with radioactive implants, skin cancer left corner of mouth. on rx for abcess cyst on back of neck History of Any Multi-Drug Resistant Organisms: None Reported Past Surgical History: Appendectomy, Bowel Resection, Heart Catheterization, Pacemaker Additional Past Surgical History / Comment(s): yady filter, colostomy/late r reversal, surgery for kidney stones, pace maker 05/27/21 Past Anesthesia/Blood Transfusion Reactions: No Reported Reaction Type of Cardiac Device: Permanent Pacemaker Device Placement Date:: 2021 Past Psychological History: No Psychological Hx Reported Smoking Status: Former smoker Past Alcohol Use History: Occasional Past Drug Use History: None Reported - Past Family History Mother Family Medical History: Diabetes Mellitus Additional Family Medical History / Comment(s): brain tumors Father Family Medical History: Coronary Artery Disease (CAD) General Exam - General Exam Comments Initial Comments: PHYSICAL EXAM: General Impression: Alert and oriented x3, not in acute distress HEENT: Normocephalic atraumatic, extra-ocular movements intact, pupils equal and reactive to light bilaterally, mucous membranes moist. Cardiovascular: Heart regular rate and rhythm Chest: Able to complete full sentences, no retractions, no tachypnea Abdomen: abdomen soft, non-tender, non-distended, no organomegaly Musculoskeletal: Pulses present and equal in all extremities, no peripheral edema Motor: no focal deficits noted Neurological: CN II-XII grossly intact, no focal motor or sensory deficits noted Skin: Intact with no visualized rashes Psych: Normal affect and mood Limitations: no limitations Course Vital Signs 10/08/23 10/08/23 08:41 09:06 Temperature 98.6 F 98.6 F Pulse Rate 54 L Pulse Rate [ 53 L Right Thermal Intelligence Analyst] Respiratory 22 22 Rate Blood Pressure 144/68 Blood Pressure 144/76 [Right Arm Sitting] Blood Pressure 143/66 [Right Arm Standing] Blood Pressure 135/69 [Right Arm Supine] O2 Sat by Pulse 96 97 Oximetry EKG Findings - EKG Comments: EKG Findings:: My EKG interpretation: Ventricular rate 89, ventricular paced rhythm, QRS 189, QTc 490. No NE prolongation, no QTC prolongation, no ST or T- wave changes noted. EKG compared to May 31, 2021 showing no changes. Overall, this EKG is unremarkable Medical Decision Making - Medical Decision Making Was pt. sent in by a medical professional or institution (Dr., PA, TAX MANAGER, urgent care, hospital, or longterm...) When possible be specific @ -No Did you speak to anyone other than the patient for history (EMS, parent, family, police, friend...)? What history was obtained from this source @ -No Did you review nursing and triage notes (agree or disagree)? Why? @ -I reviewed and agree with nursing and triage notes Were old charts reviewed (outside hosp., previous admission, EMS record, old EKG, old radiological studies, urgent care reports/EKG's, longterm records)? Report findings @ -No old charts were reviewed Differential Diagnosis (chest pain, altered mental status, abdominal pain women, abdominal pain men, vaginal bleeding, musculoskeletal, weakness, fever, dyspnea, syncope, headache, dizziness, GI bleed, back pain, seizure, CVA, palpatations, mental health)? @ -Differential Weakness: Hypoglycemia, shock, sepsis, hyponatremia, anemia, infection, UT, ETOH, adverse medicine reaction, overdose, stroke, this is not meant to be an all-inclusive list. EKG interpreted by me (3pts min.). @ -See above X-rays interpreted by me (1pt min.). @ -Chest x-ray shows no acute processes CT interpreted by me (1pt min.). @ -None done U/S interpreted by me (1pt. min.). @ -None done What testing was considered but not performed or refused? (CT, X-rays, U/S, labs)? Why? @ -None What meds were considered but not given or refused? Why? @ -None Was smoking cessation discussed for >3mins.? @ -No Were there social determinants of health that impacted care today? How? (Homelessness, low income, unemployed, alcoholism, drug addiction, transportation, low edu. Level, literacy, decrease access to med. care, custodial, rehab)? @ -No Was there de-escalation of care discussed even if they declined (Discuss DNR or withdrawal of care, Hospice)? DNR status @ -No What co-morbidities impacted this encounter? (DM, HTN, Smoking, COPD, CAD, Cancer, CVA, ARF, Chemo, Hep., AIDS, mental health diagnosis, sleep apnea, morbid obesity)? @ -None Was patient admitted / discharged? Hospital course, mention meds given and route, prescriptions, significant lab abnormalities, going to OR and other pertinent info. @ -83-year-old male presents to the emergency department for generalized weakness. Vital signs upon arrival are within acceptable limits he has a pacemaker. EKG is unremarkable. Physical examination shows malaised male no acute distress. Laboratory evaluation is unremarkable. Patient is COVID-pos itive. Patient reevaluated bedside 11:40 AM on to be stable condition. Disposition options were discussed. Patient is agreeable discharge. Advised follow-up with primary care doctor. Did you discuss the management of the patient with other professionals (professionals i.e. , PA, TAX MANAGER, lab, RT, psych nurse, licensed master social worker, agricultural equipment design engineer, teacher, annual giving officer, wrapper caser)? Give summary @ -No Was critical care preformed (if so, how long)? @ -No Undiagnosed new problem with uncertain prognosis? @ -No Drug Therapy requiring intensive monitoring for toxicity (Heparin, Nitro, Insulin, Cardizem)? @ -No Were any procedures done? @ -No Diagnosis/symptom? Acute, or Chronic, or Acute on Chronic? Uncomplicated (without systemic symptoms) or Complicated (systemic symptoms)? @ -Coronavirus Side effects of treatment? @ -No Exacerbation, Progression, or Severe Exacerbation? @ -No Poses a threat to life or bodily function? How? (Chest pain, USA, UT, pneumonia, PE, COPD, DKA, ARF, appy, cholecystitis, CVA, Diverticulitis, Homicidal, Suicidal, threat to staff... and all critical care pts) @ -No - Lab Data Result diagrams: 10/08/23 09:26 10/08/23 09:26 Lab Results 10/08/23 10/08/23 10/08/23 Range/Units 09:26 09: 09:26 WBC 6.0 (3.8-10.6) k/uL RBC 4.50 (4.30-5.90) m/uL Hgb 14.6 (13.0-17.5) gm/dL Hct 42.7 (39.0-53.0) % MCV 94.9 (80.0-100.0) fL MCH 32.5 (25.0-35.0) pg MCHC 34.3 (31.0-37.0) g/dL RDW 13.2 (11.5-15.5) % Plt Count 164 (150-450) k/uL MPV 8.4 Neutrophils % 78 % Lymphocytes % 13 % Monocytes % 6 % Eosinophils % 1 % Basophils % 1 % Neutrophils # 4.7 (1.3-7.7) k/uL Lymphocytes # 0.8 L (1.0-4.8) k/uL Monocytes # 0.3 (0-1.0) k/uL Eosinophils # 0.1 (0-0.7) k/uL Basophils # 0.0 (0-0.2) k/uL PT 20.0 H (10.0-12.5) sec INR 2.0 H (<1.2) APTT 24.5 (22.0-30.0) sec Sodium (137-145) mmol/L Potassium (3.5-5.1) mmol/L Chloride (98-107) mmol/L Carbon Dioxide (22-30) mmol/L Anion Gap mmol/L BUN (9-20) mg/dL Creatinine (0.66-1.25) mg/dL Est GFR (CKD-EPI)AfAm (>60 ml/min/1.73 sqM) Est GFR (CKD-EPI)NonAf (>60 ml/min/1.73 sqM) Glucose (74-99) mg/dL Plasma Lactic Acid Ector (0.7-2.0) mmol/L Calcium (8.4-10.2) mg/dL Magnesium (1.6-2.3) mg/dL Total Bilirubin (0.2-1.3) mg/dL AST (17-59) U/L ALT (4-49) U/L Alkaline Phosphatase (38-126) U/L Troponin I (0.000-0.034) ng/mL Total Protein (6.3-8.2) g/dL Albumin (3.5-5.0) g/dL Urine Color Yellow Urine Appearance Clear (Clear) Urine pH 5.5 (5.0-8.0) Ur Specific [place] 1.022 (1.001-1.035) Urine Protein Negative (Negative) Urine Glucose (UA) Negative (Negative) Urine Ketones 1+ H (Negative) Urine Blood Small H (Negative) Urine Nitrite Negative (Negative) Urine Bilirubin Negative (Negative) Urine Urobilinogen <2.0 (<2.0) mg/dL Ur Leukocyte Esterase Negative (Negative) Urine RBC <1 (0-5) /hpf Urine WBC 1 (0-5) /hpf Urine Mucus Rare H (None) /hpf Influenza Type A (PCR) (Not Detectd) Influenza Type B (PCR) (Not Detectd) RSV (PCR) (Not Detectd) SARS-CoV-2 (PCR) (Not Detectd) 10/08/23 10/08/23 10/08/23 Range/Units 09:26 09:26 09:26 WBC (3.8-10.6) k/uL RBC (4.30-5.90) m/uL Hgb (13.0-17.5) gm/dL Hct (39.0-53.0) % MCV (80.0-100.0) fL MCH (25.0-35.0) pg MCHC (31.0-37.0) g/dL RDW (11.5-15.5) % Plt Count (150-450) k/uL MPV Neutrophils % % Lymphocytes % % Monocytes % % Eosinophils % % Basophils % % Neutrophils # (1.3-7.7) k/uL Lymphocytes # (1.0-4.8) k/uL Monocytes # (0-1.0) k/uL Eosinophils # (0-0.7) k/uL Basophils # (0-0.2) k/uL PT (10.0-12.5) sec INR (<1.2) APTT (22.0-30.0) sec Sodium 133 L (137-145) mmol/L Potassium 4.2 (3.5-5.1) mmol/L Chloride 102 (98-107) mmol/L Carbon Dioxide 23 (22-30) mmol/L Anion Gap 8 mmol/L BUN 15 (9-20) mg/dL Creatinine 0.82 (0.66-1.25) mg/dL Est GFR (CKD-EPI)AfAm >90 (>60 ml/min/1.73 sqM) Est GFR (CKD-EPI)NonAf 82 (>60 ml/min/1.73 sqM) Glucose 104 H (74-99) mg/dL Plasma Lactic Acid Ector 1.5 (0.7-2.0) mmol/L Calcium 9.1 (8.4-10.2) mg/dL Magnesium 1.9 (1.6-2.3) mg/dL Total Bilirubin 2.0 H (0.2-1.3) mg/dL AST 33 (17-59) U/L ALT 20 (4-49) U/L Alkaline Phosphatase 96 (38-126) U/L Troponin I <0.012 (0.000-0.034) ng/mL Total Protein 6.4 (6.3-8.2) g/dL Albumin 4.0 (3.5-5.0) g/dL Urine Color Urine Appearance (Clear) Urine pH (5.0-8.0) Ur Specific [place] (1.001-1.035) Urine Protein (Negative) Urine Glucose (UA) (Negative) Urine Ketones (Negative) Urine Blood (Negative) Urine Nitrite (Negative) Urine Bilirubin (Negative) Urine Urobilinogen (<2.0) mg/dL Ur Leukocyte Esterase (Negative) Urine RBC (0-5) /hpf Urine WBC (0-5) /hpf Urine Mucus (None) /hpf Influenza Type A (PCR) (Not Detectd) Influenza Type B (PCR) (Not Detectd) RSV (PCR) (Not Detectd) SARS-CoV-2 (PCR) (Not Detectd) 10/08/23 Range/Units 09:26 WBC (3.8-10.6) k/uL RBC (4.30-5.90) m/uL Hgb (13.0-17.5) gm/dL Hct (39.0-53.0) % MCV (80.0-100.0) fL MCH (25.0-35.0) pg MCHC (31.0-37.0) g/dL RDW (11.5-15.5) % Plt Count (150-450) k/uL MPV Neutrophils % % Lymphocytes % % Monocytes % % Eosinophils % % Basophils % % Neutrophils # (1.3-7.7) k/uL Lymphocytes # (1.0-4.8) k/uL Monocytes # (0-1.0) k/uL Eosinophils # (0-0.7) k/uL Basophils # (0-0.2) k/uL PT (10.0-12.5) sec INR (<1.2) APTT (22.0-30.0) sec Sodium (137-145) mmol/L Potassium (3.5-5.1) mmol/L Chloride (98-107) mmol/L Carbon Dioxide (22-30) mmol/L Anion Gap mmol/L BUN (9-20) mg/dL Creatinine (0.66-1.25) mg/dL Est GFR (CKD-EPI)AfAm (>60 ml/min/1.73 sqM) Est GFR (CKD-EPI)NonAf (>60 ml/min/1.73 sqM) Glucose (74-99) mg/dL Plasma Lactic Acid Ector (0.7-2.0) mmol/L Calcium (8.4-10.2) mg/dL Magnesium (1.6-2.3) mg/dL Total Bilirubin (0.2-1.3) mg/dL AST (17-59) U/L ALT (4-49) U/L Alkaline Phosphatase (38-126) U/L Troponin I (0.000-0.034) ng/mL Total Protein (6.3-8.2) g/dL Albumin (3.5-5.0) g/dL Urine Color Urine Appearance (Clear) Urine pH (5.0-8.0) Ur Specific [place] (1.001-1.035) Urine Protein (Negative) Urine Glucose (UA) (Negative) Urine Ketones (Negative) Urine Blood (Negative) Urine Nitrite (Negative) Urine Bilirubin (Negative) Urine Urobilinogen (<2.0) mg/dL Ur Leukocyte Esterase (Negative) Urine RBC (0-5) /hpf Urine WBC (0-5) /hpf Urine Mucus (None) /hpf Influenza Type A (PCR) Not Detected (Not Detectd) Influenza Type B (PCR) Not Detected (Not Detectd) RSV (PCR) Not Detected (Not Detectd) SARS-CoV-2 (PCR) Detected A (Not Detectd) Disposition Clinical Impression: Coronavirus infection Disposition: HOME SELF-CARE Condition: Good Instructions (If sedation given, give patient instructions): Coronavirus Disease 2019 (COVID-19) Is patient prescribed a controlled substance at d/c from ED?: No Referrals: Phoenix Mi MD [Primary Care Provider] - 1-2 days Time of Disposition: 11:41
[2023-10-08] MEDS: SODIUM CHLORIDE 0.9% 1,000 ML IV STA (09:39)
[2023-10-08 09:42] LABS: Appearance,Urine Clear (Clear); Bilirubin,Urine Negative (Negative); Blood,Urine Small (Negative); Color,Urine Yellow; Glucose,Urine (UA) Negative (Negative); Ketones,Urine 1+ (Negative); Leukocyte Esterase,Urine Negative (Negative); Mucus,Urine Rare /hpf; Nitrite,Urine Negative (Negative); PH, Urine 5.5 (5.0-8.0); Protein,Urine Negative (Negative); RBC,Urine <1 /hpf (0-5); Specific Gravity,Urine 1.022 (1.001-1.035); Urobilinogen,Urine <2.0 mg/dL (<2.0); WBC,Urine 1 /hpf (0-5)
[2023-10-08 09:45] LABS: Basophils % (A) 1 %; Eosinophils # (A) 0.1 k/uL (0-0.7); Eosinophils % (A) 1 %; HCT 42.7 % (39.0-53.0); HGB 14.6 gm/dL (13.0-17.5); Lymphocytes # (A) 0.8 k/uL (1.0-4.8); Lymphocytes % (A) 13 %; MCH 32.5 pg (25.0-35.0); MCHC 34.3 g/dL (31.0-37.0); MCV 94.9 fL (80.0-100.0); Mean Platelet Volume 8.4; Monocytes # (A) 0.3 k/uL (0-1.0); Monocytes % (A) 6 %; Neutrophils # (A) 4.7 k/uL (1.3-7.7); Neutrophils % (A) 78 %; Platelet Count 164 k/uL (150-450); RDW 13.2 % (11.5-15.5)
[2023-10-08 09:47] LABS: Partial Thromboplastin Time 24.5 sec (22.0-30.0)
[2023-10-08 09:52] LABS: ALT 20 U/L (4-49); AST 33 U/L (17-59); African American GFR (CKD) >90 (>60 ml/min/1.73 sqM); Alkaline Phosphatase 96 U/L (38-126); Anion Gap 8 mmol/L; Blood Urea Nitrogen 15 mg/dL (9-20); Calcium 9.1 mg/dL (8.4-10.2); Carbon Dioxide 23 mmol/L (22-30); Chloride 102 mmol/L (98-107); Glucose 104 mg/dL (74-99); Magnesium 1.9 mg/dL (1.6-2.3); Non-African American GFR(CKD) 82 (>60 ml/min/1.73 sqM); Potassium 4.2 mmol/L (3.5-5.1); Sodium 133 mmol/L (137-145); Total Protein 6.4 g/dL (6.3-8.2)
--- NOTE | 2023-10-08 10:31 | XR ---
EXAMINATION TYPE: XR chest 2V DATE OF EXAM: 10/08/2023 COMPARISON: 05/31/2021 INDICATION: Syncope TECHNIQUE: Frontal and lateral views of the chest are obtained. FINDINGS: The heart size is enlarged. This may overlies left. The pulmonary vasculature is normal. The lungs are clear. IMPRESSION: 1. No acute pulmonary process.
[2023-10-08 12:03] VITALS: BP 133/85; PULSE 49; RESP 18
== END 2023-10-08 12:02 | disposition home or self-care (01) ==
LOC: EC 08:40
DX: U07.1 COVID-19 (principal); Z87.891 Personal history of nicotine dependence; Z88.1 Allergy status to other antibiotic agents; Z88.2 Allergy status to sulfonamides; Z95.0 Presence of cardiac pacemaker; Z91.013 Allergy to seafood; Z91.010 Allergy to peanuts
CPT/HCPCS: 36415; 71046; 80053; 81001; 83605; 83735; 84484; 85025; 85610; 85730; 87636; 93005; 96360; 99285